=== PATIENT | male | born 1960 | race Caucasian/White ===

== ENCOUNTER 2018-06-23 09:45 | Outpatient (REF) | payer OTHER, SELFPAY ==
[2018-06-24 10:57] LABS: Hemoglobin A1C 5.7 % (4.5-6.2)
[2018-06-24 11:02] LABS: ALT 20 U/L (12-78); AST 20 U/L (15-37); Albumin 4.1 g/dL (3.4-5.0); Alkaline Phosphatase 72 U/L (46-116); Anion Gap 8.1 mmol/L (3-11); BUN 18 mg/dL (7-18); Bilirubin, Total 0.6 mg/dL (0.2-1.0); CO2 29.9 mmol/L (21.0-32.0); CREATININE 0.94 mg/dL (0.70-1.30); Calcium 9.4 mg/dL (8.5-10.1); Chloride 102 mmol/L (98-107); Glucose 104 mg/dL (70-100); Potassium 4.3 mmol/L (3.5-5.1); Sodium 140 mmol/L (136-145); Total Protein 7.3 g/dL (6.4-8.2)
[2018-06-24 18:38] LABS: Cholesterol 197 mg/dL (50-200); HDL Cholesterol 76 mg/dL (40-60); LDL CHOLESTEROL 109 mg/dL (<100); Triglyceride 26 mg/dL (30-150)
== END 2018-06-23 10:05 ==
LOC: NCHCN 09:45
PROVIDERS: PCP Physician Assistant Medical; Visit Provider Physician Assistant Medical
DX: Z00.00 Encounter for general adult medical examination without abnormal findings (principal); Z13.1 Encounter for screening for diabetes mellitus; Z13.220 Encounter for screening for lipoid disorders; Z13.228 Encounter for screening for other metabolic disorders
CPT/HCPCS: 80053; 80061; 83721; 83036

== ENCOUNTER 2019-03-15 15:05 | Outpatient (REF) | payer OTHER, SELFPAY ==
[2019-03-15 22:20] LABS: Anion Gap 9.2 mmol/L (3-11); BUN 15 mg/dL (7-18); CO2 27.8 mmol/L (21.0-32.0); CREATININE 0.99 mg/dL (0.70-1.30); Calcium 9.5 mg/dL (8.5-10.1); Chloride 103 mmol/L (98-107); Glucose 100 mg/dL (70-100); Potassium 4.6 mmol/L (3.5-5.1); Sodium 140 mmol/L (136-145)
== END 2019-03-15 15:25 ==
LOC: NCHCN 15:05
PROVIDERS: PCP Physician Assistant Medical; Visit Provider Physician Assistant Medical
DX: I10 Essential (primary) hypertension (principal)
CPT/HCPCS: 80048

== ENCOUNTER 2020-07-10 16:28 | Outpatient (REF) | payer OTHER, SELFPAY ==
[2020-07-10 15:50] LABS: Anion Gap 7.2 mmol/L (3-11); BUN 17 mg/dL (7-18); CO2 28.8 mmol/L (21.0-32.0); Calcium 9.3 mg/dL (8.5-10.1); Chloride 105 mmol/L (98-107); Glucose 85 mg/dL (74-106); Potassium 4.5 mmol/L (3.5-5.1); Sodium 141 mmol/L (136-145)
[2020-07-10 15:57] LABS: Hemoglobin A1C 5.9 % (<5.7)
== END 2020-07-10 16:29 | disposition home or self-care (01) ==
LOC: NCHCN 16:28
PROVIDERS: PCP Physician Assistant Medical; Visit Provider Physician Assistant Medical
DX: I10 Essential (primary) hypertension (principal); R73.03 Prediabetes
CPT/HCPCS: 80048; 83036

== ENCOUNTER 2021-01-05 08:44 | Outpatient (REF) | payer OTHER, SELFPAY ==
[2021-01-05 15:16] LABS: Hemoglobin A1C 5.9 % (<5.7)
[2021-01-05 15:23] LABS: ALT 26 U/L (16-63); AST 16 U/L (15-37); Albumin 4.2 g/dL (3.4-5.0); Alkaline Phosphatase 75 U/L (46-116); Anion Gap 2.3 mmol/L (3-11); BUN 22 mg/dL (7-18); Bilirubin, Total 0.5 mg/dL (0.2-1.0); CO2 26.7 mmol/L (21.0-32.0); CREATININE 0.8 mg/dL (0.70-1.30); Calcium 9.1 mg/dL (8.5-10.1); Calculated LDL 126 mg/dL (<100); Chloride 103 mmol/L (98-107); Cholesterol 191 mg/dL (<200); Glucose 112 mg/dL (74-106); HDL Cholesterol 57 mg/dL (40-60); Potassium 5.1 mmol/L (3.5-5.1); Sodium 132 mmol/L (136-145); Total Protein 7.1 g/dL (6.4-8.2); Triglyceride 41 mg/dL (<150)
[2021-01-08 11:04] LABS: Hepatitis C Ab w Rflx HCV PCR Negative (Negative)
== END 2021-01-05 08:45 | disposition home or self-care (01) ==
LOC: NCHCN 08:44
PROVIDERS: PCP Physician Assistant Medical; Visit Provider Physician Assistant Medical
DX: Z00.00 Encounter for general adult medical examination without abnormal findings (principal); R73.03 Prediabetes; I10 Essential (primary) hypertension; Z11.59 Encounter for screening for other viral diseases
CPT/HCPCS: 80053; 80061; 86803; 83036

== ENCOUNTER 2021-05-10 12:00 | Outpatient (CLI) | payer OTHER, SELFPAY ==
--- NOTE | 2021-05-10 15:00 | DI.RAD_ITS ---
Exam(s) XR SHOULDER RT COMPLETE 2+V EXAM: XR SHOULDER RT COMPLETE 2+V CLINICAL HISTORY: RT SHOULDER PAIN, M25.511, SLIP AND FALL ON ICE THIS MORNING, PAIN PROXIMAL. TECHNIQUE: 2D digital imaging was performed. COMPARISON: No exams were available for comparison FINDINGS: Four views of the right shoulder reveal no evidence fracture nor dislocation nor glenohumeral joint s pace narrowing. No calcifications in the subacromial space. There is, however, slight diminution of the subacromial space. Minimal degenerative changes in the AC joint. No calcifications in the suba cromial space. No osseous lesions. Bone density normal. IMPRESSION: Subtle decrease in subacromial space height. This may be associated with rotator cuff pathology. DATA REPOSITORY: RADIATION DOSE DELIVERED:
== END 2021-05-10 12:20 ==
PROVIDERS: PCP Physician Assistant Medical; Visit Provider Physician Assistant Medical
DX: M25.511 Pain in right shoulder (principal)
CPT/HCPCS: 73030

== ENCOUNTER 2021-06-06 01:06 | Outpatient (CLI) | payer OTHER, SELFPAY ==
--- NOTE | 2021-06-06 06:30 | DI.MRI_ITS ---
Exam(s) MR UPPER JOINT RT WO EXAM: MR UPPER JOINT RT WO CLINICAL HISTORY: R SHOULDER PAIN,traumatic tear rt rotator cuff, s46.011a TECHNIQUE: Multiplanar multisequence MRI of the shoulder was performed. COMPARISON: CR XR SHOULDER RT COMPLETE 2+V from 05/10/2021 FINDINGS: MARROW:There is no evidence of fracture, Hill-Sachs deformity, nor ominous osseous lesions. Mild bone edema seen in the greater tuberosity region of the humeral head. There are findings consistent with probable prior rotator cuff surgery here. ROTATOR CUFF MECHANISM: AC JOINT/ACROMIUM: There is mild widening of the AC joint (5-6 millimeters). This may be postsurgica l.. Fluid intensity is noted within the AC joint space. There is no evidence of os acromiale. Supraspinatus: There is a prominent full-thickness tear with retraction of the musculotendinous junct ion to the medial 3rd of the humeral head. This results in a large bare area, and there is fluid con tinuity between the glenohumeral joint and diminished subacromial bursa space. Mild muscle atrophy n oted. Infraspinatus: Partial tearing. However, a large part of the tendon still inserts upon the posterior aspect of the greater tuberosity, appearing intact. Teres Minor: Intact. No evidence of tear nor muscle atrophy. Subscapularis/anterior cuff: Intact. No abnormal signal at the level of the multipennate insertional fibers. No significant tear nor atrophy. BICEPS TENDON: Exhibits normal position with in the inter tubercular groove but exhibits mild attenua tion at this level. Remains attached to the anterosuperior labrum, however, there is significant tearing of the labrum at and anterior to this level. LABRUM: Although there is no evidence of tear in the superior labrum posterior to the biceps insertio n, there is significant tearing of the anterior labrum. The posterior labrum is intact. Inferior la vijaya appears intact. Inferior glenohumeral ligament is intact. LABROLIGAMENTOUS/CAPSULAR COMPLEX: There is no evidence of avulsion of the anterior-inferior labrum, capsule, inferior glenohumeral liga ment complex nor disruption of the scapular periosteum to suggest the presence of a Bankart lesion. GLENOHUMERAL JOINT: There is a moderate size joint effusion which extends down the biceps tendon black th. Also in continuity with the subacromial space (which is diminished), as evident on recent plain films. No degenerative subarticular cysts. No osteophytes. No evidence of capsular tear. The infe rior glenohumeral ligament is intact. QUADRILATERAL SPACE: No evidence of mass in the region of the axillary nerve and dorsal circumflex hu meral vessels. Visualized triceps muscle at this level appears unremarkable. IMPRESSION: 1. There is evidence of prior rotator cuff surgery. 2. There is presently a large tear of the rotator cuff supraspinatus tendon with retraction to the me dial 3rd of the humeral head, this leaving a large bare area with continuity of fluid between the gle nohumeral joint and diminished subacromial space. Infraspinatus appears attached to the posterior as pect of the greater tuberosity although the more anterior attachment fibers are not visualized. Ante rior cuff-subscapularis appears intact. 3. There is tearing of the anterior superior labrum just below the biceps attachment. There is fluid interposition at this level between the labrum and the osseous glenoid. The inferior half of the an terior labrum appears intact as does the inferior labrum and posterior labrum and there is no evidenc e of SLAP-type superior labral tear. 4. Biceps tendon appears attenuated within the intertubercular groove but otherwise intact. DATA REPOSITORY:
== END 2021-06-06 01:26 ==
PROVIDERS: PCP Physician Assistant Medical; Visit Provider Physician Assistant Surgical
DX: S46.011A Strain of muscle(s) and tendon(s) of the rotator cuff of right shoulder, initial encounter (principal); S43.491A Other sprain of right shoulder joint, initial encounter
CPT/HCPCS: 73221

== ENCOUNTER 2021-06-26 01:49 | Outpatient (CLI) | payer OTHER, SELFPAY ==
[2021-06-26 13:01] LABS: Source Nasal/Nares
[2021-06-26 16:28] LABS: COVID-19 PCR Negative (Negative)
== END 2021-06-26 01:50 | disposition home or self-care (01) ==
PROVIDERS: PCP Physician Assistant Medical; Visit Provider Student in an Organized Health Care Education/Training Program
DX: Z20.822 Contact with and (suspected) exposure to COVID-19 (principal); Z01.818 Encounter for other preprocedural examination
CPT/HCPCS: 87635

== ENCOUNTER 2021-06-28 07:16 | Day surgery (SDC) | payer OTHER, SELFPAY ==
[2021-06-28] VITALS (8 sets, daily range): BP systolic 98–131; BP diastolic 44–89; PULSE 53–63; RESP 14–21; TEMP 36.2–37.1; O2SAT 95–98; BMI 29.0
--- NOTE | 2021-06-28 06:34 | W.ANESPRE ---
General Info Date of Service Date Performed: 06/28/21 Height: 5 ft 11 in Weight: 94.347 kg Body Mass Index (BMI): 29.0 Surgical Procedure: Operation Date: 06/28/21 09:55 Proposed Procedures Side Surgeon p Shoulder Rotator Cuff Massive Repair Arthroscopic w/Extensive Debridement, possible Biceps Tenodesis, Subacromial Decompression,possible Allograft Capsular Reconstruction Right Shawn Milian MD Meds Allergies and Home Medications Allergies Allergy/AdvReac Type Severity Reaction Status Date / Time No Known Drug Allergies Allergy Unverified 06/28/21 07:30 Home Medication Medication Instructions Recorded lisinopril 10 mg tablet 10 mg PO HS 05/30/21 aspirin 81 mg PO DAILY 14 Days #14 tab 06/28/21 naproxen 250 - 500 mg PO BID PRN #40 tab 06/28/21 oxycodone 5 - 10 mg PO Q4H PRN #18 tab MDD 06/28/21 30 mg Current Visit Medications: Current Medications Generic Name Dose Route Start Last Admin Trade Name Freq PRN Reason Stop Dose Admin Ringer's Solution 1,000 mls @ 100 mls/hr 06/28/21 06:00 IV 07/27/21 23:59 INFUSION HAYLEE Cefazolin Sodium/Dextrose 2 gm in 50 mls @ 100 mls/hr 06/28/21 06:00 Ancef Duplex IVPB 06/28/21 16:00 PREOP HAYLEE IV Miscellaneous Supplies 1 each 06/28/21 06:00 Iv Access IV 07/27/21 23:59 DIRECTED HAYLEE Sodium Chloride 0 ml 06/28/21 06:00 Normal Saline Flush 10 Ml Syr IV 07/27/21 23:59 PRN PRN Sodium Chloride 0 ml 06/28/21 06:00 Normal Saline 10 Ml Vial IJ 07/27/21 23:59 DIRECTED PRN Sterile Water 0 ml 06/28/21 06:00 Water,Injection,Sterile 10 Ml Vial IJ 07/27/21 23:59 DIRECTED PRN PFSH Active Problems Active Problems: Problem Status Onset Code Traumatic tear of right rotator cuff 05/21/21 S46.011A Rupture of right proximal biceps tendon S46.211A Medical History Medical History (Updated 06/28/21 @ 07:30 by Amy Echols) HTN (hypertension) Hx of fracture of leg left Surgical History Surgical History Hx of colonoscopy Tobacco Smoking/Tobacco Use Status: Never Alcohol Alcohol Intake: current Alcohol intake frequency: 0-2 drinks per day Alcohol type: wine Substance Use Substance use: Never Substance use type: does not use Vital Signs and Lab Results Vital Signs Most Recent Vital Signs in EMR: Temp Pulse Resp BP Pulse Ox 36.7 C 63 16 130/89 97 06/28/21 07:47 06/28/21 07:47 06/28/21 07:47 06/28/21 07:47 06/28/21 07:47 Lab Results Blood Type / Crossmatch: No Data to Display Complete Blood Count: No Data to Display Complete Metabolic Panel: No Data to Display Liver Function Panel: No Data to Display Coagulation Panel: No Data to Display Cardiac Panel: No Data to Display Arterial Blood Gas: No Data to Display Venous Blood Gas: No Data to Display Pancreas Panel: No Data to Display Thyroid Panel: No Data to Display Infectious Disease: Coronavirus (COVID-19)(PCR) Negative (Negative) 06/26/21 08:30 06/26/21 Coronavirus 2019 Source Nasal/Nares 06/26/21 08:30 06/26/21 Blood Cultures: No Data to Display Toxicology Panel: No Data to Display Anesthesia Assessment and Plan Anesthesia History Personal History: No History of Anesthesia Complications Family History: No Family History of Anesthesia Complications Exercise Tolerance Exercise Tolerance: Metabolic Equivalents<4 Cardiac & Pulmonary Exam Cardiac Exam: Normal S1/S2 Heart Sounds Pulmonary Exam: Clear Bilateral Breath Sounds Implantable Cardiac Device Does patient have a Pacemaker or an ICD?: No Airway Exam Known Difficult Airway: No Mallampati Class: 4 Mouth Opening: Narrow (< 3cm) Thyromental Distance: Less than 3 cm Neck Range of Motion: Full ROM Neck Circumference: Normal Teeth Condition: Normal Dentition ASA Classification ASA Score: ASA 2 Emergency Case?: No NPO Status NPO Status: NPO Clears >2 hours, Solids >8 hours Anesthesia Plan Resuscitation Status: Full Code Anesthesia Technique: General Anesthesia Airway Planned: Endotracheal Tube Pain Management: Surgeon and patient request nerve block Monitors Used: Standard Monitors Preoperative Comments:: 61 yo male for right RTC tear. Sig PMHx: HTN (lisinopril), never smoker, occ EtOH. Plan: JEANNIE ROME.
[2021-06-28] MEDS: Lactated Ringers 1,000 ML 100 ML IV ×2 (08:05→13:00)
--- NOTE | 2021-06-28 08:41 | W.ANESNERVE ---
Nerve Block Single Injection Procedure Date and Time Date Performed: 06/28/21 Procedure Start: 08:30 Location Where Procedure Performed Procedure Location: Day Surgery Unit Reason Performed: Postoperative Analgesia Requesting Provider: Shawn Milian Timeout Performed Timeout Performed: Yes Monitoring Used ECG, Blood Pressure and SpO2 Sterility Sterility: Hand Hygiene, Surgical Cap, Surgical Mask and Chlorhexidine Sedation Given During Procedure Sedation Given (Indicate Dose Given): No Sedation given Patient Mental Status Patient Mental Status: Awake Nerve Block 1st Nerve Block: Laterality: Right Block Type: Interscalene Needle / Catheter Used: 100mm SonoPlex II Local Anesthetic Bolus (Indicate Dose Given): Lidocaine used for local infiltration of skin, Injected in 3-5ml increments after negative blood aspiration, Bupivacaine 0.5% Dose:: 14 mL and Exparel Dose:: 10 mL Additives (Indicate Dose Given): None Ultrasound: Sterile probe cover and gel used Ultrasound Image Saved?: Yes Nerve Stimulator: Not Used Paresthesia: None Procedure Tolerated: No Complications Procedure Outcome: Successful Performed By: Terry Jane
--- NOTE | 2021-06-28 12:00 | ROE_ITS ---
Date of service: 06/28/21 Time of Service: 11:00 Operative Note Operative Note DATE OF PROCEDURE: 06/28/21 PRE-OP DIAGNOSIS: Right: 1. Massive rotator cuff tear 2. LHB tendinopathy POST-OP DIAGNOSIS: same Right: 1. Massive rotator cuff tear 2. LHB tendinopathy 3. SLAP tear PROCEDURE: Right: 1. Rotator cuff repair, CPT# 70989. This involved repair of the infraspinatus and partial supraspinatus using anchors and sutures to reattach the rotator cuff over the top of the reconstruction graft to the greater tuberosity. 2. Arthroscopic biceps tenodesis, CPT# 21148. This involved arthroscopically suturing and reattaching the long head of the biceps tendon to the proximal humerus at anterior medial supraspinatus footprint superior to the bicipital groove with a screw at the correct tension. 3. Arthroscopic superior capsular reconstruction, CPT #07829: This involved dermal allograft reconstruction of deficient superior capsule to maintain glenohumeral stability and prevent superior humeral migration. 4. Extensive debridement, CPT# 35241. This involved using arthroscopic hand instruments, power instruments, and radiofrequency instruments to release the long head of the biceps tendon and debride areas of labral tearing, synovitis, and chondromalacia greater tuberosity within the glenohumeral joint anteriorly, superiorly and posteriorly. Significant scarring adhesions were released anteriorly, about the subcoracoid recess, rotator interval including [facility] L, and between the superior rotator cuff and labrum. 5. Subacromial decompression, CPT# 10262. This involved using arthroscopic power instruments and a radiofrequency wand to complete a bursectomy The sales assistant entertainment and media was medically required in order to help assist in techniques above, which require positioning the arm, holding the arthroscope, and manipulating multiple instruments and sutures at the same time. This cannot be done without the help of an experienced sales assistant entertainment and media. SURGEON: Shawn Milian CONSTITUTIONAL LAW PROFESSOR: Sima Allen ANESTHESIA TYPE: General LMA/ETT and Primary Nerve Block Refer to Anesthesia Record ESTIMATED BLOOD LOSS: 15 PATHOLOGY: none sent COMPLICATIONS: None Patient was transported to: PACU Patient's condition: stable Implants: Arthrex: 4.75mm SwiveLocks x 5 Indications: The patient was diagnosed with the above conditions and appropriately indicated for surgical intervention. Please see complete medical record for details. Findings: Exam under anesthesia: Still limited range of motion slightly forward elevation and external rotation lacking about 15 degrees external rotation and 25 degrees forward elevation Glenohumeral joint: Significant synovitis scarring adhesion anteriorly, rotator interval, subcoracoid recess about intact subscapularis. Diminutive biceps tendon intra-articularly although no obvious tearing there was a SLAP tear also present about the biceps anchor. Significantly scarred retracted supraspinatus about to the level of the superior labrum. Delaminated scarred infraspinatus anterior component retracted to about the glenoid and posterior compartment moderately tract about correction to the glenoid. Subacromial space: Fibrinous material about devoid greater tuberosity of largely any rotator cuff attachment. No significant subacromial bone spur. Significant bursitis and adhesions globally adhesions to the delaminated poor tissue quality rotator cuff. Procedure Description: In the operating room, general anesthesia was induced. Bilateral shoulders were examined. The patient was positioned in the beachchair position. All bony prominences were well-padded. Preoperative antibiotics were administered. The shoulder was prepped and draped in the usual sterile fashion. The correct patient, procedure, and side of the procedure were all verified prior to incision. Starting through the posterior portal a standard complete diagnostic arthroscopy was performed of the glenohumeral joint including inspection of the long head of the biceps, anterior and superior labrum, subscapularis tendon, supraspinatus and infraspinatus tendons, and axillary recess. The glenoid and humeral head cartilage as well as the posterior labrum were inspected from an anterior viewing portal. Significant findings and interventions noted above. Cannulas were inserted at the superior anterior, superior posterior, and lateral 50 yard line portals. The biceps tendon was localized and secured using loop and tack method with a suture tape passed around and then through the tendon. The arthroscopic scissors was used to tenotomized the biceps from the superior labrum SLAP tear region in the radiofrequency ablator used to mushroom and appropriately contour the stump. The biceps tendon was retracted at the superior anterolateral portal and to about the level of the top of the bicipital groove. Significant attention and time was spent debriding extensively anteriorly superiorly and posteriorly adhesions and scarring between the rotator cuff and bone and bursa above as well as with the labrum and capsule below. This included anterior subcoracoid about the subscapularis and rotator interval releases as well as mobilizing the significantly scarred retracted supraspinatus and infraspinatus delaminated tearing. The rotator cuff tissue was debrided to a stable margin. Various liberator's and elevators were attempted to mobilize tissue for repair. There was no way to achieve supraspinatus tissue reduction to the greater tuberosity footprint. Significant tension was required to reduce partially the more viable posterior component of the infraspinatus across the far posterior greater tuberosity. Decision was made to proceed with allograft superior capsular reconstruction given the superior instability present and likely progressive rotator cuff arthropathy. The bursectomy was completed anterior laterally and posteriorly. The superior labrum was was debrided. The superior anterior and posterior margin of the glenoid bone was prepared to optimize healing. Percutaneously the 3 glenoid corkscrew anchors were localized, drilled and then placed. The 2 medial row SwiveLock anchors were then punched in place. The anterior anchor contained the biceps repair suture completing the tenodesis. The posterior medial row anchor contained a knotless repair mechanism for planned infraspinatus repair over the posterior margin of the cuff. The dimensions for the reconstruction were measured with the arm in the appropriate abduction and neutral rotation position. The graft was prepared on the back table leaving about a 5 mm margin medially anteriorly posteriorly without 10 mm laterally for greater tuberosity coverage. The graft was brought over to the shoulder. The lateral Susan switched for a 12 x 3 mm passport. The FiberTape's and knotless repair sutures brought out laterally taking care to avoid any twisting or nodding. These were passed from underneath and through the cuff at the appropriate prepunch medial row and lateral position. Sequentially the repair and then knotless shuttling suture was then retrieved from the anterior then middle and then posterior glenoid knotless corkscrew anchors. The scorpion was used to pass horizontal mattress sutures at the appropriate medial glenoid margin of the allograft. Sutures were shuttled through their respective anchors and all slack taken out of the system. The back grasper followed by Gin clamp were used to deliver the allograft carefully into the shoulder through the lateral portal. Sequential tightening was performed on the glenoid anchors with excellent apposition and coverage of the glenoid. The posterior anchor knotless mechanism needed a little help with the tape grasper to fully secure this corner of the graft down to bone. Preliminary tightening was completed. The FiberTape's were then compressed over the graft securing coverage over the greater tuberosity with excellent preliminary appearance. The tapes were retrieved out the superior portals. A single tape from anterior and posteriorly was then brought out laterally and secured anteriorly laterally to a lateral row SwiveLock anchor. This was repea ashley to a posterior lateral anchor completing the speed bridge knotless compression of the graft over the greater tuberosity. The knotless repair suture from the posterior medial row anchor was then passed through the infraspinatus at the appropriate level achieving excellent coverage of the infraspinatus over the inferior and posterior portion of the graft. Final tightening was done on the glenoid corkscrew anchors and sutures cut. Repair was inspected and felt to have excellent coverage for 6 frustration and good infraspinatus repair to the graft. The supraspinatus and more anterior aspect and Stratus could be mobilized partially over the graft. Decision was made to place 2 additional suture tapes in cinch mode and then draped this tissue over the medial posterior aspects of the graft and secured to a far lateral central SwiveLock anchor. Everything and was inspected and demonstrated good fixation and good cuff repair. There was good rotator cuff coverage posteriorly and allograft reconstruction coverage superiorly to about the rotator interval biceps groove. The shoulder was drained of arthroscopic fluid. All portal sites were copiously irrigated. These incisions were closed using 3-0 Monocryl in a buried fashion and then covered with Mastisol, Steri-Strips, Xeroform, dry gauze, and ABDs. The dressings were covered and secured with Medipore tape. The operative ext remity was placed into a sling for immobilization. The patient awoke from anesthesia without complication and was transferred to the recovery room in a stable condition.
--- NOTE | 2021-06-28 13:37 | PDOC.DSDIS_ITS ---
Discharge Plan Disposition Patient Disposition: HOME Condition: Stable Discharge Details Reason For Visit: Right shoulder surgery Attending Provider: Shawn Milian Primary Care Provider: Josep Ridley Home Meds and New Rx's Prescriptions: New naproxen 250 mg tablet 250 - 500 mg PO BID PRNQty: 40 RF: 0 aspirin 81 mg tablet,delayed release (DR/EC) 81 mg PO DAILY 14 Days Qty: 14 RF: 0 oxycodone 5 mg tablet 5 - 10 mg PO Q4H MDD 30 mg PRN (Reason: moderate to severe pain) Qty: 18 RF: 0 Continued lisinopril 10 mg tablet 20 mg PO HS RF: 0 Discharge Instructions Additional Instructions: Surgery: Right shoulder arthroscopy with allograft superior capsular rec onstruction, rotator cuff repair, biceps tenodesis, extensive debridement, and subacromial decompression. Activity: For 6 weeks, you should keep your arm at your side in a neutral position at all times except for physical therapy. Do not try to lift or raise your arm using your own muscles. You should use the sling whenever you are out of the house. You may have to adjust the abduction pillow or remove it for comfort. At home it is best to remove the sling and rest the arm on a pillow at your side or support the operative side with your other hand. You may allow the arm to dangle at your side. A physical therapy prescription will be sent electronically to begin in about 3 weeks. CONSERVATIVE protocol. Gentle range of motion. Active assisted after 6 weeks. Active after 8 weeks. No strengthening for 3 months. Prescriptions: Aspirin 81 mg take 1 daily to prevent a blood clot for 2 weeks Naproxen 250 mg take 1-2 every 12 hours with a meal as needed for moderate pain Oxycodone 5 mg take 1-2 every 4-6 hours as needed for severe pain You may use radl-zki-zybygcz Tylenol (acetaminophen) as needed for mild pain. These pain medications may be taken all at once or in different combinations as needed. Also, recommend Colace (docusate) as a stool softener as surgery and pain medicine cause constipation. Dressings: Remove shoulder bandage after 3 days. Leave the sticky Steri-Strips in place until they fall off or remove them after you shower. Cover the incisions with Band-Aids or leave them open to air. You may shower after 5 days. Follow-up: 10-[address] Milian You may take off the leg compression stockings this evening at home. You may also leave them on a few days longer if you have a history of leg swelling or edema. Let us know right away if you develop any redness, drainage, fevers, chest pain, or trouble breathing. Do not drink alcohol or drive for at least 24 hours after anesthesia. Please call the office during business hours with any questions or concerns. Referrals: Shawn Milian MD [ [facility] STAFF PHYSICIAN] - Discharge Orders Discharge Orders: Discharge Order (Routine); Ordered 06/28/21 Ordered By: Shawn Milian DS: Diagnosis Discharge Diagnosis (1) Traumatic tear of right rotator cuff: Status: Acute (2) Rupture of right proximal biceps tendon: Status: Acute
[2021-06-28] MEDS: EPINEPHrine 30 MG/30 ML VIAL (13:45)
--- NOTE | 2021-06-28 17:07 | W.PM.DSUDISC ---
Discharge Plan Disposition Patient Disposition: HOME Condition: Stable Discharge Details Reason For Visit: Right shoulder surgery Attending Provider: Shawn Milian Primary Care Provider: Josep Ridley Home Meds and New Rx's Prescriptions: New naproxen 250 mg tablet 250 - 500 mg PO BID PRNQty: 40 RF: 0 aspirin 81 mg tablet,delayed release (DR/EC) 81 mg PO DAILY 14 Days Qty: 14 RF: 0 oxycodone 5 mg tablet 5 - 10 mg PO Q4H MDD 30 mg PRN (Reason: moderate to severe pain) Qty: 18 RF: 0 Continued lisinopril 10 mg tablet 20 mg PO HS RF: 0 Discharge Instructions Additional Instructions: Surgery: Right shoulder arthroscopy with allograft superior capsular reconstruction, rotator cuff repair, biceps tenodesis, extensive debridement, and subacromial decompression. Activity: For 6 weeks, you should keep your arm at your side in a neutral position at all times except for physical therapy. Do not try to lift or raise your arm using your own muscles. You should use the sling whenever you are out of the house. You may have to adjust the abduction pillow or remove it for comfort. At home it is best to remove the sling and rest the arm on a pillow at your side or support the operative side with your other hand. You may allow the arm to dangle at your side. A physical therapy prescription will be sent electronically to begin in about 3 weeks. CONSERVATIVE protocol. Gentle range of motion. Active assisted after 6 weeks. Active after 8 weeks. No strengthening for 3 months. Prescriptions: Aspirin 81 mg take 1 daily to prevent a blood clot for 2 weeks Naproxen 250 mg take 1-2 every 12 hours with a meal as needed for moderate pain Oxycodone 5 mg take 1-2 every 4-6 hours as needed for severe pain You may use [id number] Tylenol (acetaminophen) as needed for mild pain. These pain medications may be taken all at once or in different combinations as needed. Also, recommend Colace (docusate) as a stool softener as surgery and pain medicine cause constipation. Dressings: Remove shoulder bandage after 3 days. Leave the sticky Steri-Strips in place until they fall off or remove them after you shower. Cover the incisions with Band-Aids or leave them open to air. You may shower after 5 days. Follow-up: 10-[address] Milian You may take off the leg compression stockings this evening at home. You may also leave them on a few days longer if you have a history of leg swelling or edema. Let us know right away if you develop any redness, drainage, fevers, chest pain, or trouble breathing. Do not drink alcohol or drive for at least 24 hours after anesthesia. Please call the office during business hours with any questions or concerns. Stand Alone Forms: Anesthesia Discharge Inst., Lylys.Nerve Block Instructions Referrals: Shawn Milian MD [ [facility] STAFF PHYSICIAN] - 07/11/21 1:45 pm Discharge Orders Discharge Orders: Discharge Order (Routine); Ordered 06/28/21 Ordered By: Shawn Milian Discharge Data Discharge Date/Time-TO BE ENTERED AT DEPARTURE: 06/28/21 15:44 DS: Diagnosis Discharge Diagnosis (1) Traumatic tear of right rotator cuff: Status: Acute (2) Rupture of right proximal biceps tendon: Status: Acute
--- NOTE | 2021-06-29 12:58 | W.ANESPOSTOP ---
Postoperative Evaluation Date, Time and Location Date Performed: 06/29/21 Time Performed: 12:58 Patient Location: Day Surgery Unit Vital Signs Most Recent Imported Vital Signs: Most Recent Vital Signs Temp Pulse Resp BP Pulse Ox 36.2 C L 59 L 16 110/69 95 06/28/21 14:55 06/28/21 14:55 06/28/21 14:55 06/28/21 14:55 06/28/21 14:55 Pain Score Most Recent Pain Score: Most Recent Pain Score Pain Level 0 06/28/21 14:55 Assessment Mental Status: Awake (Alert & Oriented to Patient Baseline) Airway and Respiratory Function: Patent airway with normal (patient baseline) respiratory exam Cardiovascular Function: Hemodynamically Stable Hydration Status: Adequately Hydrated Nausea & Vomiting: No Nausea or Vomiting Pain: Pt. Denies Any Pain Peripheral Nerve Block: Regional nerve block not resolved at time of post operative discharge Postoperative Comments:: Patient seen yesterday by Shereen Jane and myself. Postop erroneously not entered yesterday.
== END 2021-06-28 15:44 | disposition home or self-care (01) ==
PROVIDERS: PCP Physician Assistant Medical; Visit Provider Student in an Organized Health Care Education/Training Program
PROC: (CPT 29827; principal; 2021-06-28 09:45)
DX: S46.011A Strain of muscle(s) and tendon(s) of the rotator cuff of right shoulder, initial encounter (principal); S46.211A Strain of muscle, fascia and tendon of other parts of biceps, right arm, initial encounter; X58.XXXA Exposure to other specified factors, initial encounter; S43.431A Superior glenoid labrum lesion of right shoulder, initial encounter
CPT/HCPCS: 29806; 29827; 29828; 29826; 29823; 76942; J1100; J2001; J2250; J2370; J2405; J2704

== ENCOUNTER 2021-11-13 15:59 | Outpatient (REF) | payer OTHER, SELFPAY ==
[2021-11-15 11:41] LABS: COVID-19 RT-PCR UVMMC Result Positive (Negative)
== END 2021-11-13 16:00 | disposition home or self-care (01) ==
LOC: NCHCN 15:59
PROVIDERS: PCP Physician Assistant Medical; Visit Provider Physician Assistant Medical
DX: Z20.822 Contact with and (suspected) exposure to COVID-19 (principal)
CPT/HCPCS: U0003

== ENCOUNTER 2022-04-29 16:14 | Outpatient (REF) | payer OTHER, SELFPAY ==
[2022-04-29 17:27] LABS: ALT 28 U/L (16-63); AST 23 U/L (15-37); Albumin 3.8 g/dL (3.4-5.0); Alkaline Phosphatase 71 U/L (46-116); BUN 20 mg/dL (7-18); Bilirubin, Total 0.3 mg/dL (0.2-1.0); CREATININE 1.1 mg/dL (0.70-1.30); Calcium 8.6 mg/dL (8.5-10.1); Calculated LDL 111 mg/dL (<100); Chloride 103 mmol/L (98-107); Cholesterol 180 mg/dL (<200); Estimated GFR 74.96 (mL/min/1.73m2); Glucose 106 mg/dL (74-106); HDL Cholesterol 57 mg/dL (40-60); Hemoglobin A1C 5.7 % (<5.7); Potassium 4.2 mmol/L (3.5-5.1); Sodium 140 mmol/L (136-145); Total Protein 6.9 g/dL (6.4-8.2); Triglyceride 61 mg/dL (<150)
== END 2022-04-29 16:15 | disposition home or self-care (01) ==
LOC: NCHCN 16:14
PROVIDERS: PCP Physician Assistant Medical; Visit Provider Physician Assistant Medical
DX: I10 Essential (primary) hypertension (principal); R73.03 Prediabetes
CPT/HCPCS: 80053; 80061; 83036

== ENCOUNTER 2022-07-30 13:07 | Outpatient (REF) | payer OTHER, SELFPAY ==
[2022-07-30 17:13] LABS: ALT 29 U/L (16-63); AST 18 U/L (15-37); Albumin 4.1 g/dL (3.4-5.0); Alkaline Phosphatase 79 U/L (46-116); Anion Gap 5.8 mmol/L (3-11); BUN 21 mg/dL (7-18); Bilirubin, Total 0.4 mg/dL (0.2-1.0); CO2 29.2 mmol/L (21.0-32.0); CREATININE 1.1 mg/dL (0.70-1.30); Calcium 9.3 mg/dL (8.5-10.1); Calculated LDL 98 mg/dL (<100); Chloride 103 mmol/L (98-107); Cholesterol 168 mg/dL (<200); Estimated GFR 74.96 (mL/min/1.73m2); Glucose 113 mg/dL (74-106); HDL Cholesterol 60 mg/dL (40-60); Potassium 4.8 mmol/L (3.5-5.1); Sodium 138 mmol/L (136-145); Total Protein 7.1 g/dL (6.4-8.2); Triglyceride 53 mg/dL (<150)
== END 2022-07-30 13:08 | disposition home or self-care (01) ==
LOC: NCHCN 13:07
PROVIDERS: PCP Physician Assistant Medical; Visit Provider Physician Assistant Medical
DX: E78.5 Hyperlipidemia, unspecified (principal)
CPT/HCPCS: 80053; 80061

== ENCOUNTER 2023-01-31 08:52 | Outpatient (REF) | payer OTHER, SELFPAY ==
[2023-01-31 17:37] LABS: Hemoglobin A1C 5.8 % (<5.7)
[2023-01-31 22:57] LABS: PSA, Screening 1.6 ng/mL (<=4.5)
== END 2023-01-31 08:53 | disposition home or self-care (01) ==
LOC: NCHCN 08:52
PROVIDERS: PCP Physician Assistant Medical; Visit Provider Physician Assistant Medical
DX: Z00.00 Encounter for general adult medical examination without abnormal findings (principal); R73.03 Prediabetes; Z12.5 Encounter for screening for malignant neoplasm of prostate
CPT/HCPCS: 84153; 83036

== ENCOUNTER 2023-12-14 14:08 | Inpatient (IN) | payer MEDICARE, SELFPAY ==
[2023-12-14] VITALS (44 sets, daily range): BP systolic 67–113; BP diastolic 35–69; PULSE 55–96; RESP 7–26; TEMP 36.2–36.3; O2SAT 98
[2023-12-14] MEDS: Lactated Ringers 1,000 ML 1000 ML IV ×2 (15:25→16:18)
[2023-12-14 15:29] LABS: Abs Immature Grans 0.02 10^3/uL (0.0-0.06); Absolute Basophil Count 0.06 10^3/uL (0.0-0.2); Absolute Eosinophil Count 0.25 10^3/uL (0.0-0.7); Absolute Lymphocyte Count 1.42 10^3/uL (1.2-3.4); Absolute Monocyte Count 0.94 10^3/uL (0.1-0.8); Absolute Neutrophil Count 6.15 10^3/uL (1.2-6.7); Basophils % 0.7 %; Eosinophils % 2.8 %; HCT 40.7 % (40.0-50.0); HGB 14.7 g/dL (13.5-17.5); Immature Grans % 0.2 %; Lymphocytes % 16.1 %; MCH 29.9 pg (27.0-33.0); MCHC 36.1 % (32.0-36.0); MCV 83 fL (80-95); MPV 9.8 fL (8.0-11.0); Monocytes % 10.6 %; Neutrophils % 69.6 %; Platelet Count 285 10^3/uL (130-400); RBC 4.92 10^6/uL (4.36-5.78); RDW 12.4 % (11.8-14.1); RDW-SD 37.7 fL; WBC 8.84 10^3/uL (4.4-10.8)
[2023-12-14 15:47] LABS: ALT 26 U/L (16-63); AST 13 U/L (15-37); Albumin 4.1 g/dL (3.4-5.0); Alkaline Phosphatase 95 U/L (46-116); Anion Gap 17.7 mmol/L (3-11); CO2 17.3 mmol/L (21.0-32.0); Calcium 8.7 mg/dL (8.5-10.1); Chloride 94 mmol/L (98-107); Creatine Kinase 309 U/L (39-308); Estimated GFR 9.17 (mL/min/1.73m2); Glucose 122 mg/dL (74-106); Magnesium 2.6 mg/dL (1.8-2.4); Potassium 5.5 mmol/L (3.5-5.1); Sodium 129 mmol/L (136-145); Total Protein 7.5 g/dL (6.4-8.2)
[2023-12-14 15:54] LABS: BUN 153 mg/dL (7-18)
[2023-12-14 15:55] LABS: CREATININE 6.3 mg/dL (0.70-1.30)
--- NOTE | 2023-12-14 16:00 | RT.EKG_ITS ---
APPROVED REPORT Exam: Resting ECG Reason for Exam: HYPER K Patient Location: E HR:62 bpm ECG Measurements Heart Rate 62 AXIS MT 154 P 37 QRSd 88 QRS 37 QT 362 T 38 QTc 367 Conclusion Sinus rhythm. 62 normal axis no stemi
--- NOTE | 2023-12-14 16:30 | HPE_ITS ---
Date of service: 12/14/23 Time of Service: 16:30 Assessment and Plan Assessment and plan (1) Hypotension: Status: Acute Assessment and plan: Most likely d/t severe dehydration IV bolus of LR 1000 ml X2 with positive reponse w SBP 91-98 Additional LR 500 ml bolus to meet 30 ml/kg BMP reordered at 17:30 then Q4 hours Repeat Cr 5.1 from 5.5, BUN 140 from 153, K 5.3, Na 131 from 129 SBP 113 in ICU Crystalloid at 150 cc/hour- no previous history of heart failure, was on NS initially will change to LR Consider transferring to ICU level of care if hypotension persists despite adequate fluid resuscitation indicating refractory hypovolemic shock (2) Stage 3 acute kidney injury: Status: Acute Assessment and plan: Cr 6.3 and BUN 153 ratio >20 pointing to prerenal SHIRLEY with gravity> 1.025 Urine sodium pending with value > 40 indicating intra or post renal component Power for strict I&O And as above (3) Acute renal injury due to hypovolemia: Status: Acute Assessment and plan: As above (4) Kidney failure, acute: Status: Acute Assessment and plan: GFR 9 as above and renal US in AM (5) Hyperkalemia: Status: Acute Assessment and plan: Potassium at 5.5, EKG negative for ectopies, repeat at 5.3 Telemetry Consider Lokelma if repeated BMP shows above normal potassium As above (6) Hyponatremia: Status: Acute Assessment and plan: Continue IV fluid resuscitation, and monitor for sodium repletion < 4-6 mEq over a few hour and < 10 mEq/L over 24 hours (7) On deep vein thrombosis (DVT) prophylaxis: Status: Acute Assessment and plan: TEDs Discussed with Dr. Holliday History of Present Illness History of Present Illness Chief Complaint: lack of energy, nausea Narrative: This 63 years old male patient with a past medical history of hypertension on lisinopril and hydrochlorothiazide presented to the emergency room at [facility] via private vehicle for evaluation of decreased energy level, nausea stating that he felt queasy. The patient drove himself. Spouse was at the bedside mentioning symptoms starting as early as a month ago with additional confusion lately. 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 The patient denied change in vision, dizziness, chest pain, cough, vomiting, diarrhea or dysuria. Spouse reporting that voiding is usually prolonged. The workup in the ED was significant for BUN 153, creatinine 6.3, sodium 129, potassium 5.5, chloride 94, anion gap 17.7. CK of 309 was reassuring. The hospitalist service was contacted and the patient admitted as a medical surgical patient with telemetry. EKG results were not available at this time but upon review no ectopy pointing to cardiac increased except for excess acceptability was noted; EKG appears to be negative for ST elevation in 2 contiguous leads. Upon review of the flowsheet, it was noticed that blood pressures have been between 67/37 to 82/42 with lactated Ringer's boluses in progress. Patient seen in ED room 4. The patient was able to sustain a conversation with spouse assistance for details. The patient denied using NSAIDs, only took E[place]- [place] at times. The patient denied EtOH and tobacco abuse. No further symptoms or complaints mentioned. Blood pressure at increased to 91/52 by the end of the second liter of LR bolus. The patient would like to receive CPR and is agreeable with short-term intubation thus the patient is a full code. Review of Systems All systems reviewed & are unremarkable except as noted in HPI and below PFSH All Active Problems On deep vein thrombosis (DVT) prophylaxis (Acute) Acute renal injury due to hypovolemia (Acute) Hypotension (Acute) Hyponatremia (Acute) Hyperkalemia (Acute) Kidney failure, acute (Acute) Stage 3 acute kidney injury (Acute) Traumatic tear of right rotator cuff (Acute 05/21/21) Medical History Hx of fracture of leg left HTN (hypertension) Rupture of right proximal biceps tendon Surgical History (Updated 10/31/21 @ 09:03 by GIANNI Harman) History of arthroscopy of right shoulder (06/28/21) SCR Hx of colonoscopy Family History (Updated 12/14/23 @ 19:33 by Maria Del Rosario Mckenna APRN) Mother Osteoporosis Social History Smoking/Tobacco Use Status: Never Smoking risk assessment performed?: Yes Alcohol Intake: current Alcohol Intake frequency: holidays/special occasions only Alcohol type: wine Drug use: Never Substance use type: does not use Current gender identity: male Do you feel safe at home: Yes Do you feel safe in your relationship?: Yes Meds Allergies and Home Medications Allergies Allergy/AdvReac Type Severity Reaction Status Date / Time No Known Drug Allergies Allergy Unknown Unverified 12/14/23 14:19 Home Medications ?Medication ?Instructions ?Recorded ?Confirmed ?Type lisinopril 10 mg tablet 20 mg PO HS 05/30/21 12/14/23 History atorvastatin 10 mg tablet 10 mg PO DAILY 12/14/23 12/14/23 History Exam Narrative Exam Narrative: Constitutional Patient is supine on stretcher, follows commands adequately but slightly slow to initiate movements. HENMT: Head is atraumatic, normocephalic, no lymphadenopathy. Facial structures with normal appearance Eyes: Well aligned, intact ROM Neck: Normal ROM, no meningeal signs Neuro:alert and oriented X3. No neurological focal deficit noted Chest:Chest is symmetrical and normal appearance Resp: Normal respiratory pattern, unlabored breathing, clear lung bilaterally Cardio:SR HR 62 on ED monitor, regular rhythm, S1, S2, no murmur, positive bilateral radial and pedal pulses GI: Abdomen is not distended, soft and non tender, bowel sounds are present : Negative Costovertebral angle tenderness, no bladder distension Back/spine/Pelvis: No back tenderness, normal alignment Integumentary: No skin lesions or rash Extremities: strength 5/5 to bilateral lower and upper extremities Psych: RASS 0, congruent mood and normal affect. Results Labs 12/14/23 15:24 12/14/23 17:57 Labs: Laboratory Results - last 24 hr 12/14/23 15:24 WBC 8.84 RBC 4.92 Hgb 14.7 Hct 40.7 MCV 83 MCH 29.9 MCHC 36.1 H RDW 12.4 Plt Count 285 MPV 9.8 Immature Gran % 0.2 Neutrophils % 69.6 Lymphocytes % 16.1 Monocytes % 10.6 Eosinophils % 2.8 Basophils % 0.7 Nucleated RBC % 0.0 Absolute Neutrophils 6.15 Absolute Lymphocytes 1.42 Absolute Monocytes 0.94 H Absolute Eosinophils 0.25 Absolute Basophils 0.06 Sodium 129 L Potassium 5.5 H Chloride 94 L Carbon Dioxide 17.3 L Anion Gap 17.7 H BUN 153 H* Creatinine 6.3 H* Est GFR (CKD-EPI 2020) 9.17 Glucose 122 H Calcium 8.7 Magnesium 2.6 H Total Bilirubin 0.40 AST 13 L ALT 26 Alkaline Phosphatase 95 Creatine Kinase 309 H Total Protein 7.5 Albumin 4.1 Last Vital Signs Temp 36.2 C L 12/14/23 14:12 Pulse 61 12/14/23 16:01 Resp 16 12/14/23 16:10 BP 67/37 L 12/14/23 16:01 Pulse Ox 98 12/14/23 14:12 Time Spent Time spent with Patient: >75 minutes Time was spent: preparing to see the patient(eg.review tests), obtaining and/or reviewing separately otained hiistory, ordering medications,tests, procedures, referring, communicating with other health coronary care unit nurse, indepentently interpreting results, counseling the patient and care coordination
[2023-12-14 17:30] LABS: Bilirubin Negative (Negative); Blood Negative (Negative); Clarity Clear (Clear); Glucose Negative (Negative); Ketones Negative (Negative); Leukocyte Esterase Negative (Negative); Nitrite Negative (Negative); Specific Gravity 1.025 (1.005-1.025); Urobilinogen 0.2 mg/dL (Up to 0.2)
[2023-12-14] MEDS: Lactated Ringers 1,000 ML 500 ML IV (18:01)
[2023-12-14 18:15] LABS: Anion Gap 15.6 mmol/L (3-11); CO2 19.4 mmol/L (21.0-32.0); Calcium 8.4 mg/dL (8.5-10.1); Chloride 96 mmol/L (98-107); Estimated GFR 11.82 (mL/min/1.73m2); Glucose 113 mg/dL (74-106); Potassium 5.3 mmol/L (3.5-5.1); Sodium 131 mmol/L (136-145)
[2023-12-14 18:18] LABS: BUN 140 mg/dL (7-18); CREATININE 5.1 mg/dL (0.70-1.30)
--- NOTE | 2023-12-14 19:17 | ED.GENADUL_ITS ---
Discharge Plan Disposition Patient Disposition: Admit to [facility] Condition: Fair Discharge Details Chief Complaint: GenMedical Clinical Impression: Stage 3 acute kidney injury, Hyponatremia, Hypotension, Acute renal injury due to hypovolemia, Kidney failure, acute, Hyperkalemia Admit Date/Time: 12/14/23 16:30 Admit Provider: Connor Holliday Attending Provider: Connor Holliday Primary Care Provider: Josep Ridley ED Provider: Simón Zhang [facility] General Date/Time Provider Initiated Documentation: 12/14/23 15:19 . Limitations to Documentation: no limitations . Information obtained by: patient . HPI Narrative: 63-year-old gentleman with past medical history of hyperlipidemia, hypertension presents for evaluation of weakness and concern for dehydration. 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 He states that he is tried drinking water Gatorade and Powerade, but he still is that it just runs right through him. Reports that his urine is dark but is still making urine daily. Denies any dizziness, headache chest pain or shortness of breath. Related Data Home Medications ?Medication ?Instructions ?Recorded ?Confirmed lisinopril 10 mg tablet 20 mg PO HS 05/30/21 12/14/23 atorvastatin 10 mg tablet 10 mg PO DAILY 12/14/23 12/14/23 Allergies Allergy/AdvReac Type Severity Reaction Status Date / Time No Known Drug Allergies Allergy Unknown Unverified 12/14/23 14:19 General Stated Complaint: GenMedical ADITHYA: 3 Exam Narrative Exam Narrative: Review of Systems: All systems reviewed & are unremarkable except as noted in HPI and below Well-developed, no acute distress NCAT PERRL, normal conjunctiva RRR no murmur Unlabored respiratory effort Nondistended abdomen soft nontender Extremities w/o deformity, no cyanosis, no edema No rashes or lesions. no focal neurologic deficits Appropriate mood and affect Course Vital Signs Vital signs: Vital Signs Temperature 36.2 C L 12/14/23 14:12 Pulse 96 H 12/14/23 14:12 Respiratory Rate 16 12/14/23 14:12 Blood Pressure 95/66 L 12/14/23 14:12 Pulse Oximetry 98 12/14/23 14:12 Temperature 36.2 C L 07/21/24 17:09 Temperature Source Skin 12/14/23 17:09 Pulse 61 12/14/23 18:30 Pulse 74 12/14/23 19:00 Respiratory Rate 15 12/14/23 19:00 Respiratory Effort Normal 12/14/23 17:06 Blood Pressure 107/69 12/14/23 18:30 Blood Pressure Mean 81 12/14/23 18:30 Blood Pressure Position Sitting 12/14/23 14:12 Pulse Oximetry 98 12/14/23 17:09 Oxygen Delivery Method Room Air 12/14/23 17:09 Oxygen Flow Rate 0 12/14/23 17:09 Pain Level 0 12/14/23 14:12 Lab/Test Results Lab/Test Results: Laboratory Tests Range/Units 12/14/23 15:24 WBC (4.4-10.8) 10^3/uL 8.84 RBC (4.36-5.78) 10^6/uL 4.92 Hgb (13.5-17.5) g/dL 14.7 Hct (40.0-50.0) % 40.7 MCV (80-95) fL 83 MCH (27.0-33.0) pg 29.9 MCHC (32.0-36.0) % 36.1 H RDW (11.8-14.1) % 12.4 Plt Count (130-400) 10^3/uL 285 MPV (8.0-11.0) fL 9.8 Immature Gran % % 0.2 Neutrophils % % 69.6 Lymphocytes % % 16.1 Monocytes % % 10.6 Eosinophils % % 2.8 Basophils % % 0.7 Nucleated RBC % (0.0-0.3) % 0.0 Absolute Neutrophils (1.2-6.7) 10^3/uL 6.15 Absolute Lymphocytes (1.2-3.4) 10^3/uL 1.42 Absolute Monocytes (0.1-0.8) 10^3/uL 0.94 H Absolute Eosinophils (0.0-0.7) 10^3/uL 0.25 Absolute Basophils (0.0-0.2) 10^3/uL 0.06 Sodium (136-145) mmol/L 129 L Potassium (3.5-5.1) mmol/L 5.5 H Chloride (98-107) mmol/L 94 L Carbon Dioxide (21.0-32.0) mmol/L 17.3 L Anion Gap (3-11) mmol/L 17.7 H BUN (7-18) mg/dL 153 H* Creatinine (0.70-1.30) mg/dL 6.3 H* Est GFR (CKD-EPI 2020) (mL/min/1.73m2) 9.17 Glucose (74-106) mg/dL 122 H Calcium (8.5-10.1) mg/dL 8.7 Magnesium (1.8-2.4) mg/dL 2.6 H Total Bilirubin (0.2-1.0) mg/dL 0.40 AST (15-37) U/L 13 L ALT (16-63) U/L 26 Alkaline Phosphatase (46-116) U/L 95 Creatine Kinase (39-308) U/L 309 H Total Protein (6.4-8.2) g/dL 7.5 Albumin (3.4-5.0) g/dL 4.1 Medical Decision Making Emergent evaluation of possible dehydration. Patient reports he has been working outside in the heat all week. His blood pressure is noted to be low. Initial differential includes dehydration, volume depletion, electrolyte derangement. Initial plan for fluid resuscitation, will check urinalysis. Lab work reviewed. No significant derangement in the CBC. No anemia, no leukocytosis. There are multiple derangements in his chemistry. He has hyponatremia, hyperkalemia, and elevated anion gap with significant elevation in BUN and creatinine. His CPK is only slightly elevated at 309, I do not suspect that rhabdomyolysis is contributing significantly to his renal insufficiency. An EKG was obtained. EKG interpretation by me, sinus rhythm rate 62, normal axis, no acute ischemic changes, no peaked T waves no dysrhythmia. The patient is being resuscitated with IV fluids. He is continuing to make urine and has no signs of urinary obstruction or retention with his bladder scan only having 150 cc. At this time there is no indication for emergent dialysis. I discussed with the hospitalist who will admit to their service for further management and close monitoring. Medical Records Medical records reviewed: Yes I reviewed the patient's medical records. Lab Data Lab results reviewed: Yes I reviewed the patient's lab results. Quality:SDKS Health Related Social Needs: No Data to Display Critical Care Time Critical Care Time Critical Care Time: Yes Total Critical Care Time: 34 Attestation: CRITICAL CARE Upon my evaluation, this patient had a high probability of imminent or life- threatening deterioration due to renal failure which required my direct attention, intervention, and personal management. I have personally provided 34 minutes of critical care time exclusive of time spent on separately billable procedures. Time includes review of laboratory data, radiology results, discussion with consultants, and monitoring for potential decompensation. Interventions were performed as documented above PFSH All Active Problems (Updated 12/14/23 @ 19:23 by Simón Zhang MD) On deep vein thrombosis (DVT) prophylaxis (Acute) Acute renal injury due to hypovolemia (Acute) Hypotension (Acute) Hyponatremia (Acute) Hyperkalemia (Acute) Kidney failure, acute (Acute) Stage 3 acute kidney injury (Acute) Traumatic tear of right rotator cuff (Acute 05/21/21) Medical History Hx of fracture of leg left HTN (hypertension) Rupture of right proximal biceps tendon Surgical History History of arthroscopy of right shoulder (06/28/21) SCR Hx of colonoscopy Social History Smoking/Tobacco Use Status: Never Smoking risk assessment performed?: Yes Alcohol Intake: current Alcohol Intake frequency: holidays/special occasions only Alcohol type: wine Drug use: Never Substance use type: does not use Current gender identity: male Do you feel safe at home: Yes Do you feel safe in your relationship?: Yes
[2023-12-14 19:21] LABS: Sodium, Urine 51 mmol/L
[2023-12-14] MEDS: Normal Saline 1,000 ML 150 ML IV (19:24)
[2023-12-14] MEDS: Lidocaine 2% Jelly 6 ML SYR ×2 (21:17)
[2023-12-14] MEDS: Normal Saline Flush 10 ML SYR IVP (22:54)
[2023-12-14] MEDS: Lactated Ringers 1,000 ML 150 ML IV (23:01)
[2023-12-15] VITALS (20 sets, daily range): BP systolic 84–119; BP diastolic 52–74; PULSE 53–83; RESP 8–19; TEMP 36.4–36.9; O2SAT 98–99
[2023-12-15 00:01] LABS: Anion Gap 13.6 mmol/L (3-11); CO2 21.4 mmol/L (21.0-32.0); Calcium 8.7 mg/dL (8.5-10.1); Chloride 100 mmol/L (98-107); Estimated GFR 17.38 (mL/min/1.73m2); Glucose 123 mg/dL (74-106); Potassium 4.5 mmol/L (3.5-5.1); Sodium 135 mmol/L (136-145)
[2023-12-15 00:07] LABS: BUN 127 mg/dL (7-18); CREATININE 3.7 mg/dL (0.70-1.30)
[2023-12-15 03:26] LABS: Anion Gap 11.8 mmol/L (3-11); CO2 21.2 mmol/L (21.0-32.0); Calcium 8.1 mg/dL (8.5-10.1); Chloride 101 mmol/L (98-107); Estimated GFR 22.35 (mL/min/1.73m2); Glucose 111 mg/dL (74-106); Potassium 4.8 mmol/L (3.5-5.1); Sodium 134 mmol/L (136-145)
[2023-12-15 03:32] LABS: BUN 114 mg/dL (7-18)
[2023-12-15] MEDS: Normal Saline Flush 10 ML SYR IVP ×2 (05:23→19:37)
[2023-12-15] MEDS: Lactated Ringers 1,000 ML 150 ML IV (05:38)
[2023-12-15 06:01] LABS: Abs Immature Grans 0.03 10^3/uL (0.0-0.06); Absolute Basophil Count 0.04 10^3/uL (0.0-0.2); Absolute Monocyte Count 0.66 10^3/uL (0.1-0.8); Absolute Neutrophil Count 4.13 10^3/uL (1.2-6.7); Basophils % 0.7 %; HCT 35.5 % (40.0-50.0); HGB 12.8 g/dL (13.5-17.5); Immature Grans % 0.5 %; Lymphocytes % 14.9 %; MCH 30.1 pg (27.0-33.0); MCHC 36.1 % (32.0-36.0); MCV 84 fL (80-95); MPV 9.8 fL (8.0-11.0); Monocytes % 10.9 %; Platelet Count 216 10^3/uL (130-400); RBC 4.25 10^6/uL (4.36-5.78); RDW 12.6 % (11.8-14.1); RDW-SD 38.1 fL; WBC 6.06 10^3/uL (4.4-10.8)
[2023-12-15 06:20] LABS: ALT 24 U/L (16-63); AST 10 U/L (15-37); Albumin 3.3 g/dL (3.4-5.0); Alkaline Phosphatase 75 U/L (46-116); Anion Gap 10.7 mmol/L (3-11); Bilirubin, Total 0.36 mg/dL (0.2-1.0); CO2 22.3 mmol/L (21.0-32.0); CREATININE 2.5 mg/dL (0.70-1.30); Calcium 8.3 mg/dL (8.5-10.1); Chloride 102 mmol/L (98-107); Estimated GFR 27.82 (mL/min/1.73m2); Glucose 111 mg/dL (74-106); Potassium 5.2 mmol/L (3.5-5.1); Sodium 135 mmol/L (136-145); Total Protein 6.1 g/dL (6.4-8.2)
[2023-12-15 06:22] LABS: Magnesium 2.5 mg/dL (1.8-2.4)
[2023-12-15 06:24] LABS: BUN 108 mg/dL (7-18)
--- NOTE | 2023-12-15 08:00 | DI.US_ITS ---
Exam(s) US RENAL EXAM: US RENAL CLINICAL HISTORY: Acute kidney Failure. TECHNIQUE: Mccoy scale, color and spectral Doppler were used. COMPARISON: No exams were available for comparison FINDINGS: Renal size in cm: Right: 10.7. Left: 11.1. Echogenicity: Normal. Hydronephrosis: No. Cyst or mass: No. Nephrolithiasis: No. Other findings: None. Bladder:Normal. There is a Power catheter in place. Ureteral jets: Right: Visualized and unremarkable. Left: Visualized and unremarkable. Prevoid vol:605 cc Postvoid vol:0 cc Prostate: 46 cc Renal color flow: Symmetric and within normal limits. IMPRESSION: 1. Unremarkable kidneys. No evidence of nephrolithiasis or hydronephrosis. 2. Enlarged prostate gland. DATA REPOSITORY:
--- NOTE | 2023-12-15 08:58 | PDOC.CMIN ---
Date of service: 12/15/23 Time of Service: 08:58 Care Management Initial Assmt Initial Assessment Reason for Hospitalization: dehydration with hypotension Functional Status/Living Situation Patient Presentation: Rufina was sitting up in bed in the ICU when CM met with him. He was quite pleasant and agreeable to conversation. Luan talked about his family, his pets and his job. Luan lives in a single family home in [facility] with his Evangelina and 2 dogs. They have a son and a daughter but are not in close contact. They also have several granddaughters. 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 He is independent at baseline and does not receive any community services. Clinically, Luan is improving slowly. His creatinine is down to 2.5 from a high of 6.3 on admission and his BUN is now 108 vs 153 in the ED on admission. His urine output is good and his blood pressure is improving. He shared that he feels much, much better than when he first came to the hospital. Town of Residence: [place] [facility] Resides with: Spouse (Evangelina) Significant Other/Family: [facility] Employment Status: Employed Instrumental Activities of Daily Living (ADLs): Independent Advance Directives Advance Directives: Do you have an Advance Directive: N 08/31/13 09:07 AD On File at [facility]: N 09/01/13 10:04 Date Asked 12/14/23 12/14/23 14:35 AD Date Reviewed COLST On File at [facility] COLST Date Scanned Code Status Resuscitation Status Full Code Insurance Coverage/Financial Issues Insurance: [facility] Medicare Replacement Plan Care Team Visit Care Team Role Provider Type GIANNI Rice Primary Care Provider [employer] Simón Zhang MD Emergency Provider [facility] STAFF PHYSICIAN Connor Holliday Admit Provider [facility] STAFF PHYSICIAN Attending Provider Discharge Potential Discharge Needs: PCP F/U Appt Anticipated Barriers to Discharge: Medical Status Patient/Family Education Needs: Review discharge instructions, discuss Ask Me Three Transportation: Private vehicle Plan: Anticipate Luan will be discharged home with no new services when medically stable. He will follow up with his community providers and plan of care and transport with family. CM will follow and continue to suppport discharge planning concerns. PFSH All Active Problems (Updated 12/15/23 @ 09:31 by Connor Holliday) On deep vein thrombosis (DVT) prophylaxis (Acute) Acute renal injury due to hypovolemia (Acute) Hypotension (Acute) Hyponatremia (Acute) Hyperkalemia (Acute) Kidney failure, acute (Acute) Stage 3 acute kidney injury (Acute) Traumatic tear of right rotator cuff (Acute 05/21/21) Medical History Hx of fracture of leg left HTN (hypertension) Rupture of right proximal biceps tendon Surgical History History of arthroscopy of right shoulder (06/28/21) SCR Hx of colonoscopy Family History (Updated 12/14/23 @ 19:33 by Maria Del Rosario Mckenna APRN) Mother Osteoporosis Social History Smoking/Tobacco Use Status: Never Smoking risk assessment performed?: Yes Alcohol Intake: current Alcohol Intake frequency: holidays/special occasions only Alcohol type: wine Drug use: Never Substance use type: does not use Housing: house Current gender identity: male Do you feel safe at home: Yes Do you feel safe in your relationship?: Yes SDOH(Care Management) Screening Will the Patient Participate in the Screening?: Declined to provide
--- NOTE | 2023-12-15 09:17 | PGE_ITS ---
Date of Service Date of service: 12/15/23 Time of Service: 09:17 Assessment and Plan Assessment and plan (1) Hypotension: Status: Acute Assessment and plan: Most likely d/t severe dehydration in setting of JAIME inhibitor therapy, also took some excedrin (aspirin containing) but not excessive s/p 3 liters of LR on admission. BPs still soft, not symptomatic, increase LR to 200/hr Qualifiers: Hypotension type: hypotension due to hypovolemia Qualified Code(s): E86.1 - Hypovolemia (2) Stage 3 acute kidney injury: Status: Acute Assessment and plan: As above c/w prerenal on presentation. Cr 6.3 and BUN 153 ratio >20 pointing to prerenal SHIRLEY with gravity> 1.025, though random urine sodium pending with value > 40 indicating possible intra or post renal component, though this may be to appropriate ADH stimulation with hypovolemia. Some mild LUTS but no obstruction, kidney/bladder u/s now No signs of intrinsic disease on urinalysis. Power for strict I&O GFR much improved overnight, anion theodore closing with decreasing BUN, hyponatremia resolving as expected. (3) Hyperkalemia: Status: Acute Assessment and plan: Secondary to SHIRLEY and jaime inhibitor Potassium at 5.5, down to 4.8 but 5.2 this morning. EKG negative on admission, did not receive calcium gluconate or specific therapies, just hydration. Continue telemetry (4) Hyponatremia: Status: Acute Assessment and plan: Hypovolemic, correcting with hydration. Continue IV fluid for now. (5) On deep vein thrombosis (DVT) prophylaxis: Status: Acute Assessment and plan: TEDs, he is low risk per Manoj Subjective Subjective Patient reports: feels better and tolerating a regular diet; denies diarrhea, nausea, vomiting or fever Interval history since last seen: Feels well, not dizzy standing and walking, eating and drinking. Power placed last night. No pain. Exam Narrative Exam Narrative: Well-developed, no acute distress, standing up cleaning himself normal conjunctiva, no icterus, MMM RRR no murmur Unlabored respiratory effort,lungs CTAB Nondistended abdomen soft nontender. No CVAT Extremities w/o deformity, no cyanosis, no edema No rashes or lesions. Objective Last Vital Signs Temp 36.5 C 12/15/23 06:01 Pulse 53 L 07/22/24 06:01 Resp 10 L 12/15/23 06:01 BP 96/54 L 12/15/23 06:01 Pulse Ox 99 12/15/23 04:07 Laboratory Results - last 24 hr 12/14/23 12/14/23 12/14/23 15:24 17:20 17:57 WBC 8.84 RBC 4.92 Hgb 14.7 Hct 40.7 MCV 83 MCH 29.9 MCHC 36.1 H RDW 12.4 Plt Count 285 MPV 9.8 Immature Gran % 0.2 Neutrophils % 69.6 Lymphocytes % 16.1 Monocytes % 10.6 Eosinophils % 2.8 Basophils % 0.7 Nucleated RBC % 0.0 Absolute Neutrophils 6.15 Absolute Lymphocytes 1.42 Absolute Monocytes 0.94 H Absolute Eosinophils 0.25 Absolute Basophils 0.06 Sodium 129 L 131 L Potassium 5.5 H 5.3 H Chloride 94 L 96 L Carbon Dioxide 17.3 L 19.4 L Anion Gap 17.7 H 15.6 H BUN 153 H* 140 H* Creatinine 6.3 H* 5.1 H* Est GFR (CKD-EPI 2020) 9.17 11.82 Glucose 122 H 113 H Calcium 8.7 8.4 L Magnesium 2.6 H Total Bilirubin 0.40 AST 13 L ALT 26 Alkaline Phosphatase 95 Creatine Kinase 309 H Total Protein 7.5 Albumin 4.1 Urine Color Yellow Urine Clarity Clear Urine pH 5.0 Ur Specific [place] 1.025 Urine Protein Negative Urine Ketones Negative Urine Blood Negative Urine Nitrite Negative Urine Bilirubin Negative Urine Urobilinogen 0.2 Ur Leukocyte Esterase Negative Ur Random Sodium Urine Glucose Negative 12/14/23 12/14/23 12/14/23 18:40 19:00 23:00 WBC RBC Hgb Hct MCV MCH MCHC RDW Plt Count MPV Immature Gran % Neutrophils % Lymphocytes % Monocytes % Eosinophils % Basophils % Nucleated RBC % Absolute Neutrophils Absolute Lymphocytes Absolute Monocytes Absolute Eosinophils Absolute Basophils Sodium Cancelled 135 L Potassium Cancelled 4.5 Chloride Cancelled 100 Carbon Dioxide Cancelled 21.4 Anion Gap Cancelled 13.6 H BUN Cancelled 127 H* Creatinine Cancelled 3.7 H* Est GFR (CKD-EPI 2020) Cancelled 17.38 Glucose Cancelled 123 H Calcium Cancelled 8.7 Magnesium Total Bilirubin AST ALT Alkaline Phosphatase Creatine Kinase Total Protein Albumin Urine Color Urine Clarity Urine pH Ur Specific [place] Urine Protein Urine Ketones Urine Blood Urine Nitrite Urine Bilirubin Urine Urobilinogen Ur Leukocyte Esterase Ur Random Sodium 51 Urine Glucose 12/15/23 12/15/23 03:00 05:40 WBC 6.06 RBC 4.25 L Hgb 12.8 L Hct 35.5 L MCV 84 MCH 30.1 MCHC 36.1 H RDW 12.6 Plt Count 216 MPV 9.8 Immature Gran % 0.5 Neutrophils % 68.0 Lymphocytes % 14.9 Monocytes % 10.9 Eosinophils % 5.0 Basophils % 0.7 Nucleated RBC % 0.0 Absolute Neutrophils 4.13 Absolute Lymphocytes 0.90 L Absolute Monocytes 0.66 Absolute Eosinophils 0.30 Absolute Basophils 0.04 Sodium 134 L 135 L Potassium 4.8 5.2 H Chloride 101 102 Carbon Dioxide 21.2 22.3 Anion Gap 11.8 H 10.7 BUN 114 H* 108 H* Creatinine 3.0 H 2.5 H Est GFR (CKD-EPI 2020) 22.35 27.82 Glucose 111 H 111 H Calcium 8.1 L 8.3 L Magnesium 2.5 H Total Bilirubin 0.36 AST 10 L ALT 24 Alkaline Phosphatase 75 Creatine Kinase Total Protein 6.1 L Albumin 3.3 L Urine Color Urine Clarity Urine pH Ur Specific [place] Urine Protein Urine Ketones Urine Blood Urine Nitrite Urine Bilirubin Urine Urobilinogen Ur Leukocyte Esterase Ur Random Sodium Urine Glucose Time Spent with Patient Time Spent with Patient: 35-49 minutes Time was spent: preparing to see the patient(eg.review tests), obtaining and/or reviewing separately otained hiistory, ordering medications,tests, procedures, referring, communicating with other health medicare coordinator, indepentently interpreting results, counseling the patient and care coordination
[2023-12-15] MEDS: Lactated Ringers 1,000 ML 200 ML IV ×3 (12:05→23:40)
--- NOTE | 2023-12-15 16:39 | PHA.REVIEW2 ---
Pharmacy Admission Review Admission Clinical Review Admission Pharmacy Review: On deep vein thrombosis (DVT) prophylaxis (Acute) Acute renal injury due to hypovolemia (Acute) Hypotension (Acute) Hyponatremia (Acute) Hyperkalemia (Acute) Kidney failure, acute (Acute) Stage 3 acute kidney injury (Acute) No Known Drug Allergies Allergy (Unverified 12/14/23 14:19) Unknown Resuscitation Status Full Code Height 6 ft Weight 82.8 kg Pharmacy Admission Review Renal Dosing Renal Dosing: BUN 108 mg/dL (7-18) H* 12/15/23 05:40 Creatinine 2.5 mg/dL (0.70-1.30) H 12/15/23 05:40 Medications needing adjustments: Reviewed (crcl = 34, SHIRLEY improved from yesterday (SCr 2.5 today from 6.3)) List of meds needing interventions: not currently on any medications that require renal dosing, will need to monitor for addition of any new meds that may need adjusting Anticoagulation Anticoagulation: Hgb 12.8 g/dL (13.5-17.5) L 12/15/23 05:40 Hct 35.5 % (40.0-50.0) L 12/15/23 05:40 Plt Count 216 10^3/uL (130-400) 12/15/23 05:40 Creatinine 2.5 mg/dL (0.70-1.30) H 12/15/23 05:40 DVT Prophylaxis: Reviewed (SCDs (low risk per Manoj prediction score)) Therapeutic Anticoagulation: N/A Opiate Usage Evaluate Pain Scale/Pains Meds: N/A (not on any opiates) Relevant Labs Relevant Labs: Sodium 135 mmol/L (136-145) L 12/15/23 05:40 Potassium 5.2 mmol/L (3.5-5.1) H 12/15/23 05:40 Chloride 102 mmol/L (98-107) 12/15/23 05:40 Magnesium 2.5 mg/dL (1.8-2.4) H 12/15/23 05:40 Electrolytes, C-Reactive P, ESR: Reviewed (electrolyte abnormalities improving with hydration) DM Control DM Control: N/A (not diabetic. last A1c 01/2023 = 5.8%) Cardiac Review BP, HR, EF%: Reviewed QTc Review QTc: Reviewed (QTc = 367 12/14/23) IV to PO Switch IV Medications: N/A Home Meds Home Med List reviewed: Reviewed Relevent Home Meds Not ordered & why?: home meds (atorvastatin, lisinopril) currently on hold d/t SHIRLEY, hyperkalemia Current Meds Current Medication Order Review: Reviewed
[2023-12-16 01:14] VITALS: BP 92/54; PULSE 52; PULSE 54; RESP 15; TEMP 36.9; O2SAT 99
[2023-12-16 04:41] VITALS: BP 97/62; PULSE 50; RESP 14
[2023-12-16] MEDS: Lactated Ringers 1,000 ML 200 ML IV (04:43)
[2023-12-16 07:04] LABS: Anion Gap 5.7 mmol/L (3-11); BUN 56 mg/dL (7-18); CO2 27.3 mmol/L (21.0-32.0); CREATININE 1.2 mg/dL (0.70-1.30); Calcium 8.7 mg/dL (8.5-10.1); Chloride 106 mmol/L (98-107); Estimated GFR 67.11 (mL/min/1.73m2); Glucose 107 mg/dL (74-106); Potassium 5.8 mmol/L (3.5-5.1); Sodium 139 mmol/L (136-145)
[2023-12-16 08:30] VITALS: BP 107/71; PULSE 61; PULSE 63; RESP 19
--- NOTE | 2023-12-16 08:30 | RT.EKG_ITS ---
APPROVED REPORT Exam: Resting ECG Reason for Exam: hyperkalemia Patient Location: I HR:64 bpm ECG Measurements Heart Rate 64 AXIS ND 168 P 73 QRSd 88 QRS 59 QT 367 T 42 QTc 380 Conclusion Sinus rhythm...normal P axis, V-rate 60- 99 Normal Electrocardiogram
[2023-12-16] MEDS: Sodium Zirconium Cyclosilicate 10 GM PKT PO ×3 (08:56→22:06)
[2023-12-16] MEDS: Normal Saline Flush 10 ML SYR IVP ×2 (08:56→20:23)
[2023-12-16 09:19] LABS: Potassium 5.5 mmol/L (3.5-5.1)
--- NOTE | 2023-12-16 13:48 | PDOC.CMDIS ---
Date of service: 12/16/23 Time of Service: 13:48 Care Management Discharge SDOH Health Related Social Needs: No Data to Display
[2023-12-16 14:10] VITALS: BP 105/57; PULSE 58; RESP 18; TEMP 36.7; O2SAT 95
--- NOTE | 2023-12-16 14:42 | W.PC.ACHO ---
Registration Status: Primary Language: Preferred Language: ED Information & Data Chief Complaint GenMedical 12/14/23 19:23 Triage Note doesn't feel well. started 12/14/23 14:12 friday after working in the heat. travels a lot for work. has been swimming in the river to cool off. took alkaseltzer for queeziness after eating pizza. denies fever or diarrhea. drinking more and urinating more. states urine is dark. denies dizziness or syncope. Medical / Surgical History (Last Reviewed 12/14/23 @ 19:32 by Maria Del Rosario Mckenna APRN) Hx of fracture of leg HTN (hypertension) Rupture of right proximal biceps tendon (Last Reviewed 12/14/23 @ 19:18 by Simón Zhang MD) History of arthroscopy of right shoulder (06/28/21) Hx of colonoscopy Most Recent Vital Signs Temperature 36.7 C 12/16/23 14:10 Temperature Source Temporal Artery Scan 12/16/23 14:10 Pulse 58 L 12/16/23 14:10 Pulse Rhythm Regular 12/16/23 05:01 Pulse 63 12/16/23 08:30 Respiratory Rate 18 12/16/23 14:10 Respiratory Effort Normal 12/16/23 08:41 Respiratory Depth Normal 12/16/23 08:41 Respiratory Pattern Normal 12/16/23 08:41 Blood Pressure 105/57 L 12/16/23 14:10 Blood Pressure Mean 82 12/16/23 08:30 Blood Pressure Position Sitting 12/14/23 14:12 Pulse Oximetry 95 12/16/23 14:10 Oxygen Delivery Method Room Air 12/16/23 14:10 Oxygen Flow Rate 0 12/16/23 14:10 Pain Level 0 12/16/23 14:10 Comment cuff changed to navy blue cuff from light blue cuff 12/15/23 00:38 Comment navy blue cuff 12/15/23 00:08 Allergies No Known Drug Allergies Allergy (Unverified 12/14/23 14:19) Unknown Precautions Isolation Standard precaution 12/14/23 17:06 Active Medications Generic Name Dose Route Start Last Admin Trade Name Freq PRN Reason Stop Dose Admin Sodium Chloride 0 ml 12/14/23 18:12 12/15/23 05:23 Normal Saline Flush 10 Ml Syr IVP 20 ml PRN PRN Administration Sodium Chloride 0 ml 12/14/23 20:00 12/16/23 08:56 Normal Saline Flush 10 Ml Syr IVP 40 ml BID HAYLEE Administration Sodium Zirconium Cyclosilicate 10 gm 12/16/23 14:30 12/16/23 14:19 Sodium Zirconium Cyclosilicate 10 Gm Pkt PO 12/18/23 06:31 10 gm TID@[id number],1430,2230 HAYLEE Administration IV IV Catheter Type [Right Peripheral IV Antecubital] IV Catheter Type [Left Forearm Saline Lock ] IV Catheter Gauge [Right 18 Antecubital] IV Catheter Gauge [Left 18 Forearm] Diet Orders Category Date Time Status Renal [DIET] Nutrition 12/16/23 Lunch Active Diagnostics 12/16/23 12/16/23 12/16/23 Range/Units 16:00 08:55 05:25 Sodium Pending 139 (136-145) mmol/L Potassium Pending 5.5 H 5.8 H (3.5-5.1) mmol/L Chloride Pending 106 (98-107) mmol/L Carbon Dioxide Pending 27.3 (21.0-32.0) mmol/L Anion Gap Pending 5.7 (3-11) mmol/L BUN Pending 56 H (7-18) mg/dL Creatinine Pending 1.2 D (0.70-1.30) mg/dL Est GFR (CKD-EPI 2020) Pending 67.11 (mL/min/1.73m2) Glucose Pending 107 H (74-106) mg/dL Calcium Pending 8.7 (8.5-10.1) mg/dL Intake and Output - 24 Hour Total 12/14/23 14:08 thru 12/16/23 14:11 Intake Total 47409.000 Output Total 6225 Balance 4925.000 Weight 84.1 kg [place]: [place] [address].000 Oral 1060 Output: Urine 6225 Other: Urine Color Straw Urine Appearance Clear Comment Coyle reported leaking by patient. Bladder scan confirmed patency of catheter. Urine is yellow with no clots Voiding Methods Bedside Commode Urinary Catheter Urinary Catheter Date of 12/14/23 Insertion [Coude] Time of insertion [Coude] 22:00 Falls Risk Assessment History of Falls No History 12/14/23 20:10 Contributing Factors Unstable 12/14/23 20:10 Ambulatory Aids Independent 12/14/23 20:10 Tubes/Lines W/no contributing factors 12/14/23 20:10 Gait Evaluation No gait disturbance 12/14/23 20:10 Cognition No cognitive impairment 12/14/23 20:10 Fall Total Score 13 12/14/23 20:10 Level of Risk Standard/Low Risk 12/14/23 20:10 Problems (Last Reviewed 12/14/23 @ 19:32 by Maria Del Rosario Mckenna APRN) On deep vein thrombosis (DVT) prophylaxis (Acute) Acute renal injury due to hypovolemia (Acute) Hypotension (Acute) Hyponatremia (Acute) Hyperkalemia (Acute) Kidney failure, acute (Acute) Stage 3 acute kidney injury (Acute) v v v v v v v v v Sending and/or Receiving Nurses: Please use comment section below to note any information pertinent to the patient hand-off not included above. Information / Comments: At 1350 hrs. report taken from [facility] Re[facility], Patient is alert and oriented x 4.; with ruthie coyle connected to urinary bag w/ an output of clear urine. Denied of pain, has Cont. tele. Transferred to wheelchair to Rm [id number]. No further voiced complaints. Oriented to call lights system. Report received from:
[2023-12-16 15:02] VITALS: BP 96/58; PULSE 60; RESP 18; TEMP 36.7; O2SAT 97
[2023-12-16 16:47] LABS: Anion Gap 6.7 mmol/L (3-11); BUN 41 mg/dL (7-18); CO2 27.3 mmol/L (21.0-32.0); CREATININE 1.3 mg/dL (0.70-1.30); Calcium 8.6 mg/dL (8.5-10.1); Chloride 105 mmol/L (98-107); Estimated GFR 60.96 (mL/min/1.73m2); Glucose 110 mg/dL (74-106); Potassium 5.5 mmol/L (3.5-5.1); Sodium 139 mmol/L (136-145)
--- NOTE | 2023-12-16 18:06 | PGE_ITS ---
Date of Service Date of service: 12/16/23 Time of Service: 14:04 Assessment and Plan Assessment and plan (1) Hypotension: Status: Acute Assessment and plan: Most likely d/t severe dehydration in setting of JAIME inhibitor therapy, also took some excedrin (aspirin containing) but not excessive s/p 3 liters of LR on admission. Now resolved. Stopped fluid today. Qualifiers: Hypotension type: hypotension due to hypovolemia Qualified Code(s): E86.1 - Hypovolemia (2) Stage 3 acute kidney injury: Status: Acute Assessment and plan: As above c/w prerenal on presentation. Cr 6.3 and BUN 153 ratio >20 pointing to prerenal SHIRLEY with gravity> 1.025, though random urine sodium pending with value > 40 indicating possible intra or post renal component, though this may be to appropriate ADH stimulation with hypovolemia. Some mild LUTS but no obstruction, kidney/bladder u/s now No signs of intrinsic disease on urinalysis. Now close to resolved. Follow in AM off IV fluids. Coyle out. (3) Hyperkalemia: Status: Acute Assessment and plan: Secondary to SHIRLEY and jaime inhibitor Potassium at 5.5, down to 4.8 but 5.6 this morning. EKG again reassuring. I started potassium binder, renal diet, but K+ not down yet. Trend is concerning. For this reason, keep overnight. Continue telemetry (4) Hyponatremia: Status: Acute Assessment and plan: Hypovolemic, corrected with hydration. Off IV fliuds. (5) On deep vein thrombosis (DVT) prophylaxis: Status: Acute Assessment and plan: TEDs, he is low risk per Manoj Subjective Subjective Patient reports: no new complaints, feels better and tolerating a regular diet; denies diarrhea, nausea, vomiting, shortness of breath or fever Interval history since last seen: Feels well. Still has coyle in. Eating and drinking. no palpitations or chest pain. Exam Narrative Exam Narrative: Well-developed, no acute distress, standing up cleaning himself normal conjunctiva, no icterus, MMM RRR no murmur Unlabored respiratory effort,lungs CTAB Nondistended abdomen soft nontender. Extremities w/o deformity, no cyanosis, no edema Objective Last Vital Signs Temp 36.7 C 12/16/23 15:02 Pulse 60 12/16/23 15:02 Resp 18 12/16/23 15:02 BP 96/58 L 12/16/23 15:02 Pulse Ox 97 12/16/23 15:02 Laboratory Results - last 24 hr 12/16/23 12/16/23 12/16/23 05:25 08:55 14:25 Sodium 139 139 Potassium 5.8 H 5.5 H 5.5 H Chloride 106 105 Carbon Dioxide 27.3 27.3 Anion Gap 5.7 6.7 BUN 56 H 41 H Creatinine 1.2 D 1.3 Est GFR (CKD-EPI 2020) 67.11 60.96 Glucose 107 H 110 H Calcium 8.7 8.6 Time Spent with Patient Time Spent with Patient: 35-49 minutes Time was spent: preparing to see the patient(eg.review tests), obtaining and/or reviewing separately otained hiistory, ordering medications,tests, procedures, referring, communicating with other health career services representative, indepentently interpreting results, counseling the patient and care coordination
[2023-12-16 20:18] VITALS: BP 106/58; PULSE 61; RESP 17; TEMP 36.9; O2SAT 96
[2023-12-17 03:37] VITALS: BP 98/58; PULSE 58; RESP 18; TEMP 37.4; O2SAT 97
[2023-12-17] MEDS: Sodium Zirconium Cyclosilicate 10 GM PKT PO (05:43)
[2023-12-17 07:22] LABS: Anion Gap 3.8 mmol/L (3-11); BUN 26 mg/dL (7-18); CO2 30.2 mmol/L (21.0-32.0); Calcium 8.4 mg/dL (8.5-10.1); Chloride 105 mmol/L (98-107); Estimated GFR 83.52 (mL/min/1.73m2); Glucose 109 mg/dL (74-106); Potassium 4.7 mmol/L (3.5-5.1); Sodium 139 mmol/L (136-145)
[2023-12-17] MEDS: Normal Saline Flush 10 ML SYR IVP (07:43)
[2023-12-17 07:54] VITALS: BP 110/68; PULSE 57; RESP 16; TEMP 37.1; O2SAT 96
--- NOTE | 2023-12-17 08:59 | PDOC.CMPRO ---
Date of service: 12/17/23 Time of Service: 08:59 Care Management Progress Note Discharge Potential Discharge Needs: PCP F/U Appt Anticipated Barriers to Discharge: Medical Status Patient/Family Education Needs: Review discharge instructions, discuss Ask Me Three Transportation: Private vehicle Plan: Anticipate Luan will be discharged home with no new services. He will follow up with his PCP and plan of care and transport with family. CM will follow and continue to support discharge needs. SDOH(Care Management) Screening Will the Patient Participate in the Screening?: Declined to provide
--- NOTE | 2023-12-17 09:58 | W.PM.DS.N ---
Date of service: 12/17/23 Time of Service: 09:58 DS: Diagnosis Discharge Diagnosis (1) Hypotension: Status: Acute Asessment and Plan: resolved (2) Stage 3 acute kidney injury: Status: Acute (3) Hyperkalemia: Status: Acute (4) Hyponatremia: Status: Acute Discharge Plan Disposition Patient Disposition: Home Condition: Good Discharge Details Reason For Visit: Acute Renal Failure,Hypotension,Dehydration,Hyperk Admit Date/Time: 12/14/23 16:30 Admit Provider: Connor Holliday Attending Provider: Connor Holliday Primary Care Provider: Josep Ridley Hospital Course Hospital Course: 63 yo M with history of HTN on lisinopril who drove himself to the emergency room feeling fatigued and queasy. 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 On admission his BUN was 153 and creatinine was 6.3 with K+ of 5.5 and he was hypotensive to the 60s/30s. He responded to IV fluids in the emergency room and his renal function improved steadily and symptoms resolved. A coyle was placed to monitor urine output, but he did not have obstruction. Renal ultrasound was normal but pelvic ultrasound did not a large prostate of 46cc. His potassium was trending back up on the day prior to discharge despite normalization of the GFR. He was started on Lokelma and treated for 24 hours and sent home with 48 hours of Kayexalate (much cheaper at pharmacy). He should recheck BMP in 1 week, followed by appointment with PCP. Lisinopril was held and was not resumed. His blood pressure was still 110/68 after 3 days off his medication. We discussed changing blood pressure medication class if he needs to resume antihypertensive therapy in the future, this was deferred to the PCP. Home Meds and New Rx's Prescriptions: New sodium polystyrene sulfonate Powder 15 g PO BID 2 Days Qty: 60 0RF Rx Instructions: cancel lokelma Continued atorvastatin 10 mg tablet 10 mg PO DAILY Patient Comments: TAKE 1 TABLET BY MOUTH EVERY DAY Discontinued lisinopril 20 mg tablet 20 mg PO HS Patient Comments: TAKE 1 TABLET BY MOUTH EVERY DAY Discharge Instructions Instructions: Hyperkalemia Additional Instructions: Do not take lisinopril Make sure you are constantly hydrating while you work. If you aren't feeling well you should come in to your PCP or express care and have labs done. Activity:: Activity as Tolerated Equipment/Supplies:: No Equipment Needed Diet:: avoid excess potassium Discharge Orders Discharge Orders: Discharge Order (Routine); Ordered 12/17/23 Ordered By: Connor Holliday Other Ambulatory Orders: Basic Metabolic Panel (Routine) Timeframe: 1 Week Facility: [facility] - Location: Laboratory Outpatient - [facility] Ordered By: Connor Holliday DS: Summary Time Spent with Patient providing and/or coordinating discharge services: Greater than 30 minutes Status at Discharge Functional status at discharge: independent ambulation Overall status at discharge: patient is back to baseline Mental Status: mental status grossly normal Speech and Movement: speech and movement normal Mood: congruent mood Affect: normal affect Quality:SDOH Health Related Social Needs: No Data to Display Exam Narrative Exam Narrative: Well-developed, no acute distress, standing up cleaning himself normal conjunctiva, no icterus, MMM RRR no murmur Unlabored respiratory effort,lungs CTAB Nondistended abdomen soft nontender. Extremities w/o deformity, no cyanosis, no edema Psych Mental Status: mental status grossly normal Speech and Movement: speech and movement normal Mood: congruent mood Affect: normal affect DS: Data Vitals/I&O Vitals and I&O: Vital Signs Temperature 37.1 C 12/17/23 07:54 Temperature Source Tympanic 12/17/23 07:54 Pulse 57 L 12/17/23 07:54 Pulse Rhythm Regular 12/17/23 00:00 Pulse 63 12/16/23 08:30 Respiratory Rate 16 12/17/23 07:54 Respiratory Effort Normal, Non-Labored 12/17/23 00:00 Respiratory Depth Normal 12/17/23 00:00 Respiratory Pattern Normal 12/17/23 00:00 Blood Pressure 110/68 12/17/23 07:54 Blood Pressure Mean 82 12/16/23 08:30 Blood Pressure Position Sitting 12/14/23 14:12 Pulse Oximetry 96 12/17/23 07:54 Oxygen Delivery Method Room Air 12/17/23 07:54 Oxygen Flow Rate 0 12/17/23 07:54 Pain Level 0 12/17/23 07:54 Comment cuff changed to navy blue cuff from light blue cuff 12/15/23 00:38 Comment navy blue cuff 12/15/23 00:08 Intake & Output 12/16/23 12/16/23 12/17/23 11:59 23:59 11:59 Intake Total 2000 / 3000 1000 / 3000 Output Total 1100 / 1900 800 / 1900 400 / 400 Balance 900 / 1100 200 / 1100 -400 / -400 Weight 84.1 kg Intake: IV 2000 / 3000 1000 / 3000 Output: Urine 1100 / 1900 800 / 1900 400 / 400 Other: Urine Color Straw Yellow Urine Appearance Clear Clear Clear Comment shrutie coyle discontinued Patient states he has been up 2-3 times to bathroom during the night and voided in toilet Voiding Methods Indwelling Catheter Data Completed and Pending Labs on day of discharge: Labs from last 24 hours 12/17/23 12/16/23 06:26 14:25 Sodium 139 139 Potassium 4.7 5.5 H Chloride 105 105 Carbon Dioxide 30.2 27.3 Anion Gap 3.8 6.7 BUN 26 H 41 H Creatinine 1.0 1.3 Est GFR (CKD-EPI 2020) 83.52 60.96 Glucose 109 H 110 H Calcium 8.4 L 8.6 PFSH All Active Problems (Updated 12/15/23 @ 09:31 by Connor Holliday) On deep vein thrombosis (DVT) prophylaxis (Acute) Acute renal injury due to hypovolemia (Acute) Hypotension (Acute) Hyponatremia (Acute) Hyperkalemia (Acute) Kidney failure, acute (Acute) Stage 3 acute kidney injury (Acute) Traumatic tear of right rotator cuff (Acute 05/21/21) Medical History Hx of fracture of leg left HTN (hypertension) Rupture of right proximal biceps tendon Surgical History History of arthroscopy of right shoulder (06/28/21) SCR Hx of colonoscopy Family History (Updated 12/14/23 @ 19:33 by Maria Del Rosario Mckenna APRN) Mother Osteoporosis Social History Smoking/Tobacco Use Status: Never Smoking risk assessment performed?: Yes Alcohol Intake: current Alcohol Intake frequency: holidays/special occasions only Alcohol type: wine Drug use: Never Substance use type: does not use Housing: house Current gender identity: male Do you feel safe at home: Yes Do you feel safe in your relationship?: Yes Time Spent with Patient Time Spent with Patient: <45 minutes Time was spent: preparing to see the patient(eg.review tests), obtaining and/or reviewing separately otained hiistory, ordering medications,tests, procedures, referring, communicating with other health long term care phlebotomist, indepentently interpreting results, counseling the patient and care coordination
--- NOTE | 2023-12-17 11:37 | CHAPLAIN ---
Luan was getting ready to leave when I visited. He was waiting for his discharge papers. Luan was pleasant and easily engaged in a conversation. 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 He told me that Fr. Angie Horn, who helped to establish the welding specialist program at [facility], officiated at Luan's wedding. He talked about what a good person Fr. Adams was. Luan said he doesn't have to got back to work until Friday so he has a few more days to recuperate. He said he's received great care here.
--- NOTE | 2023-12-17 11:50 | PDOC.CMDIS ---
Date of service: 12/17/23 Time of Service: 11:50 LACE Index Scoring Tool Questions: Length of Stay (in days): 3 Was the patient admitted via the E.D.?: Yes Comorbidities: Liver or Renal Disease E.D. Visits: 1 Answers: Total Score: 12 Risk of Readmission: High Risk Care Management Discharge Plan Reason for Hospitalization: renal failure Discharge Plan: Luan will be discharged home with no new services. He will follow up with his community providers and plan of care and transport with family. Patient/Family Education Needs: Review discharge instructions, discuss Ask Me Three SDDE Health Related Social Needs: No Data to Display
== END 2023-12-17 11:00 | disposition home or self-care (01) | DRG 315 ==
LOC: ER 16:51 → ICU 18:04 → MS 12-16 13:57
PROVIDERS: Nurse Practitioner Acute Care; Admitting Provider Family Medicine; Emergency Provider Emergency Medicine; PCP Physician Assistant Medical; Visit Provider Family Medicine
DX: I95.89 Other hypotension (principal); E87.1 Hypo-osmolality and hyponatremia; N17.9 Acute kidney failure, unspecified; E86.0 Dehydration; E87.5 Hyperkalemia; I10 Essential (primary) hypertension; Z79.899 Other long term (current) drug therapy
CPT/HCPCS: 00123; 36415; 76770; 80048; 80053; 82550; 93005; 96360; 96361; 99291; 81003; 83735; 84132; 84300; 85025; 93010; 99223; 99232; 99238

== ENCOUNTER 2023-12-23 11:33 | Outpatient (REF) | payer MEDICARE, SELFPAY ==
[2023-12-23 15:32] LABS: ALT 29 U/L (16-63); AST 13 U/L (15-37); Albumin 3.6 g/dL (3.4-5.0); Alkaline Phosphatase 79 U/L (46-116); Anion Gap 5.5 mmol/L (3-11); BUN 14 mg/dL (7-18); Bilirubin, Total 0.27 mg/dL (0.2-1.0); CO2 29.5 mmol/L (21.0-32.0); CREATININE 0.9 mg/dL (0.70-1.30); Calcium 8.9 mg/dL (8.5-10.1); Chloride 105 mmol/L (98-107); Estimated GFR 94.78 (mL/min/1.73m2); Glucose 104 mg/dL (74-106); Magnesium 2.1 mg/dL (1.8-2.4); Potassium 4.3 mmol/L (3.5-5.1); Sodium 140 mmol/L (136-145); Total Protein 6.4 g/dL (6.4-8.2)
== END 2023-12-23 11:34 | disposition home or self-care (01) ==
LOC: NCHCN 11:33
PROVIDERS: PCP Physician Assistant Medical; Visit Provider Physician Assistant Medical
DX: N17.9 Acute kidney failure, unspecified (principal); E87.5 Hyperkalemia
CPT/HCPCS: 80053; 83735

== ENCOUNTER 2024-03-22 09:15 | Outpatient (REF) | payer MEDICARE, SELFPAY ==
--- OUTSIDE RECORDS SUMMARY | 2024-03-22 09:16 | XMS_ITS | Clinical Summary ---
Author Organization [facility] Address [address] [place] [address] Care Team Providers Care Real Estate Administrator Name Role Phone Josep Ridley PA-C Primary Care Provider + Social History Tobacco Use Types Packs/Day Years Used Date Smoking Tobacco: Never Assessed Sex and Gender Information Value Date Recorded Sex Assigned at Not on file Gender Identity Not on file Sexual Orientation Not on file Plan of Treatment Health Maintenance Due Date Last Done Comments RSV Immunization ( o r 60+ Years) (1 - 1-dose 60+ series) 2018 COVID-19 Vaccine (2022-24 season) 2023 Fall Risk Screening 2023 Hepatitis C Screen Completed 01/05/2021 Procedures Procedure Name Priority Date/Time Associated Diagnosis Comments HEPATITIS C AB W REFLEX TO HCV RNA BY PCR Routine 01/05/2021 8:30 EDT from Last 3 Months or Most Recently Relevant to Health Maintenance Results * HEPATITIS C AB W REFLEX TO HCV RNA BY PCR (01/05/2021 8:30 EDT) Hep C Antibody Negative Negative 01/08/2021 10:59 EDT [facility] Blood VENOUS BLOOD / Unknown 01/05/2021 8:30 EDT 01/05/2021 20:54 EDT Provider Outr Resulting Lab CHEMISTRY & BLOOD GAS ORDERABLES [facility] [address] [place] [address] from Last 3 Months or Most Recently Relevant to Health Maintenance Care Teams Real Estate Administrator Relationship Specialty Start Date End Date Josep Ridley PA-C [address] [place] [phone] [facility] - General 09/13/13
--- OUTSIDE RECORDS SUMMARY | 2024-03-22 09:16 | XMS_ITS | Encounter Summary ---
Author Organization [facility] Address [address] [place] [address] Care Team Providers Care Campus Recruiting Internship Name Role Phone Josep Ridley PA-C Primary Care Provider + Encounter Details Date Type Department Care Team (Late st Contact Info) Description 01/31/2023 Lab Requisition [facility] Pathology & Laboratory Medicine - [facility] [address], [place] [id number] Outr Resulting Lab, Provider Social History Tobacco Use Types Packs/Day Years Used Date Smoking Tobacco: Never Assessed Sex and Gender Information Value Date Recorded Sex Assigned at Not on file Gender Identity Not on file Sexual Orientation Not on file documented as of this encounter Plan of Treatment Not on file documented as of this encounter Procedures Procedure Name Priority Date/Time Associated Diagnosis Comments PSA TOTAL, DIAGNOSTIC Routine 01/31/2023 8:10 EDT documented in this encounter Results * PSA TOTAL, DIAGNOSTIC (01/31/2023 8:10 EDT) PSA 1.6 <=4.5 ng/mL 01/31/2023 22:[address] [facility] Blood VENOUS BLOOD / Unknown 01/31/2023 8:10 EDT 01/31/2023 22:[address] [facility] - 01/31/2023 22:51 EDT NOTE: Serum PSA concentration should not be interpreted as absolute evidence for the presence or absence of malignant disease. Assayed on Siemens ADVIA Emergency [employer] XPT using chemiluminescent technology.??Values obtained by using different assay methods cannot be used interchangeably. Provider Outr Resulting Lab CHEMISTRY & BLOOD GAS ORDERABLES [facility] [address] [place] [address] documented in this encounter Visit Diagnoses Not on filedocumented in this encounter Care Teams Campus Recruiting Internship Relationship Specialty Start Date End Date Josep Ridley PA-C [address] [place] [phone] PCP - General 09/13/13 documented as of this encounter
--- OUTSIDE RECORDS SUMMARY | 2024-03-22 09:16 | XMS_ITS | Encounter Summary ---
Author Organization [facility] Address [address] [place] [address] Care Team Providers Care C 40A Crew Chief Name Role Phone Josep Ridley PA-C Primary Care Provider + Encounter Details Date Type Department Care Team (Late st Contact Info) Description 01/05/2021 Lab Requisition [facility] Pathology & Laboratory Medicine - [facility] [address] [place], [place] [address] Outr Resulting Lab, Provider Social History Tobacco [...] RNA BY PCR Routine 01/05/2021 8:30 EDT documented in this encounter Results * HEPATITIS C AB W REFLEX TO HCV RNA BY PCR (01/05/2021 8:30 EDT) Hep C Antibody Negative Negative 01/08/2021 10:59 EDT [facility] Blood VENOUS BLOOD / Unknown 01/05/2021 8:30 EDT 01/05/2021 20:54 EDT Provider Outr Resulting Lab CHEMISTRY & BLOOD GAS ORDERABLES [facility] [address] [place] [address] documented in this encounter Visit Diagnoses Not on filedocumented in this encounter Additional Health Concerns Infection Onset Date Last Indicated Resolved Time COVID-19 11/13/2021 11/13/2021 12/03/2021 22:1 5 EDT documented as of this encounter Care Teams C 40A Crew Chief Relationship Specialty Start Date End Date Josep Ridley PA-C [address] [place] [phone] PCP - General 09/13/13 documented as of this encounter
--- OUTSIDE RECORDS SUMMARY | 2024-03-22 09:16 | XMS_ITS | Encounter Summary ---
Author Organization [facility] Address [address] [place] [address] Care Team Providers Care Engineering Aide Name Role Phone Unavailable Primary Care Provider Unavailabl e Encounter Details Date Type Department Care Team (Latest Contact Info) Description 09/10/2013 15:22 EDT - 09/10/2013 23:59 EDT Hospital Encounter [address] [address] Unknown, Provider, Discharge Disposition: Home or Self Care Social History Tobacco Use Types Packs/Day Years Used Date Smoking Tobacco: Never Assessed Sex and Gender Information Value Date Recorded Sex Assigned at Not on file Gender Identity Not on file Sexual Orientation Not on file documented as of this encounter Discharge Disposition Disposition Code Departure Means Destination Home or Self [facility] documented in this encounter Plan of Treatment Not on file documented as of this encounter Visit Diagnoses Not on filedocumented in this encounter
--- OUTSIDE RECORDS SUMMARY | 2024-03-22 09:16 | XMS_ITS | Encounter Summary ---
Author Organization [facility] Address [address] [place] [address] Care Team Providers Care Petrographer Name Role Phone Unknown, Provider Primary Care Provider [phone] Encounter Details Date Type Department Care Team (Late st Contact Info) Description 09/10/2013 Results Only [facility] [phone] Sarah Beth Bradley, DO [address] [place] [address] Social History Tobacco Use Types Packs/Day Years Used Date Smoking Tobacco: Never Assessed Sex and Gender Information Value Date Recorded Sex Assigned at Not on file Gender Identity Not on file Sexual Orientation Not on file documented as of this encounter Plan of Treatment Not on file documented as of this encounter Procedures Procedure Name Priority Date/Time Associated Diagnosis Comments SURGICAL PATHOLOGY Routine 09/10/2013 8:43 EDT documented in this encounter Results * SURGICAL PATHOLOGY (09/10/2013 8:43 EDT) Pathology Report: SURGICAL PATHOLOGY REPORT Reports generated via electronic interface contain original data; however they are lacking the format of the original report. Caution should be taken when reading/interpreti ng unformatted reports. Name: ? MILAD CHA ? Accession #: ? [id number] ? : ? 1960 (Age: 53) ??M ? Collect Date: ? 09/10/2013 ? Location: ? [facility] ? Receive Date: ? 09/10/2013 ? Provider: SARAH BETH BRADLEY DO Copy to: AYESHA ARCHER ? Final Pathologic Diagnosis: COLON, RECTOSIGMOID, POLYP, BIOPSY: - ??Tubular adenoma (1 piece); no high grade dysplasia. Document reviewed and electronically signed by: Landy Ramirez MD Report ??Date: 09/14/2013 09:16 By the signature above, the attending physician certifies that he/she has personally conducted a gross and/or microscopic examination of the described specimens and rendered or confirmed the above diagnosis. Specimen(s) Received: Rectosigmoid polyp Clinical History: Screening; clinical diagnosis code: V76.51 Gross Description: ? Received in formalin labelled with proper patient identification (initials D, R) and rectosigmoid polyp is a single pink-banda polypoid tissue (0.6 x 0.5 x 0.2 cm). The margin is inked blue. The specimen is trisected and entirely submitted in cassette 1. Clarisa Pérez 09/13/2013 08:04 AM End of Report [facility] 09/10/2013 8:43 EDT 09/10/2013 8:43 EDT Sarah Beth Bradley DO PATHOLOGY ORDERABLES [facility] [address] [place] [address] documented in this encounter Visit Diagnoses Not on filedocumented in this encounter Care Teams Petrographer Relationship Specialty Start Date End Date Unknown, Provider, PCP - General 09/11/13 09/12/13 documented as of this encounter
--- OUTSIDE RECORDS SUMMARY | 2024-03-22 09:16 | XMS_ITS | Referral Summary ---
Author Organization [facility] Address [address] [place] [address] Care Team Providers Care Digital Camera Technician Name Role Phone Josep Ridley PA-C Primary Care Provider + Social History Tobacco Use Types Packs/Day Years Used Date Smoking Tobacco: Never Assessed Sex and Gender Information Value Date Recorded Sex Assigned at Not on file Gender Identity Not on file Sexual Orientation Not on file Plan of Treatment Not on file Procedures Procedure Name Priority Date/Time Associated Diagnosis Comments HEPATITIS C AB W REFLEX TO HCV RNA BY PCR Routine 01/05/2021 8:30 EDT from Last 3 Months or Most Recently Relevant to Health Maintenance Results * HEPATITIS C AB W REFLEX TO HCV RNA BY PCR (01/05/2021 8:30 EDT) Hep C Antibody Negative Negative 01/08/2021 10:59 EDT [facility] Blood VENOUS BLOOD / Unknown 01/05/2021 8:30 EDT 01/05/2021 20:54 EDT Provider Outr Resulting Lab CHEMISTRY & BLOOD GAS ORDERABLES [facility] [address] [place] [address] from Last 3 Months or Most Recently Relevant to Health Maintenance Care Teams Digital Camera Technician Relationship Specialty Start Date End Date Josep Ridley PA-C [address] [place] [address] PCP - General 09/13/13
--- OUTSIDE RECORDS SUMMARY | 2024-03-22 09:16 | XMS_ITS | Continuity of Care Document ---
Author Organization [facility] Address [address] [place] [address] Care Team Providers Care Engraving Patternmaker Name Role Phone AYESHA MONTANA Primary Care Provider Assessment No assessment recorded. Plan of Treatment Reminders Order Date Submit Date Provider Last Modified By Organization Details Last Modified Time Details Appointments Follow Up 30 2023 08:30A M AYESHA MONTANA Not available Not available Not available Lab None recorded. Referral None recorded. Procedures None recorded. Surgeries None recorded. Imaging None recorded. Medication Orders amlodipin e 5 mg tablet 2023 09 024 [id number], [address] [place] [address], [phone], 02/03/2024 08:06:51 Patient TargetsNo targets recorded. Patient InstructionsNo instructions recorded. Reason for Referral None Reported. Results Created Date Observation Date Name Description Value Unit Range Abnormal Flag Note LastModifiedBy Organization Detail LastModifiedTime 02/09/20 24 06/06/2021 imagi ng/di agnos tic resul t No observ ation record ed. [email or web address] Not Available 02/08 01:07:10 02/09/20 24 05/10/2021 imagi ng/di agnos tic resul t No observ ation record ed. [email or web address] Not Available 02/08 01:07:41 Result Notes None recorded. Problems Name Problem SNOMED Code Status Onset Date Resolution Date Notes Provider Name and Address Organization Details Recorded Time Benign neoplasm of colon 87169549 Active 201302/13/20 19 - Comments only - Ayesha Montana PA-C - Patient agrees to contact [facility] to schedule colonsoc opy consult Problem Code: D12.6; Problem Code Type: ICD-10; Not Available [facility] 3 04:35:00 Adult health examinat ion Active 201601/03/20 20 - Comments only - Ayesha Montana PA-C - UTD with recommen [facility] health screenin gs. Problem Code: Z00.00; Problem Code Type: ICD-10; Not Available [facility] 3 04:35:00 Elevated blood-pr essure reading without diagnosi s of hyperten dru 152918995 Completed 201807/07/2018 06/23/19 19 - Comments only - Ayesha Montana PA-C - Today's BP elevated . Will ask that patient return for BP recheck via [facility] in 2 weeks as monitori ng. Problem Code: R03.0; Problem Code Type: ICD-10; Not Available [facility] 3 04:35:00 [facility] hyperten dru 58240536 Active 201807/31/19 23 - Comments only - Ayesha Montana PA-C - Today's BP suggests fair control on LISINOPR [place] 20mg QD. Problem Code: I10; Problem Code Type: ICD-10; Not Available [facility] 3 04:35:00 Prediabe tigist 521246522 Active 201807/31/19 23 - Comments only - Ayesha Montana PA-C - Last A1C stable. Will continue to monitor Problem Code: R73.03; Problem Code Type: ICD-10; Not Available [facility] 3 04:35:00 Disorder of skin and/or subcutan eous tissue 07065244 Completed 201901/17/2020 01/03/20 20 - Comments only - Ayesha Montana PA-C - Treated with cryother apy in-offic e today. Will consider for more definati ve excision al biopsy via ENT/plas tic surgery if recurren t Problem Code: L98.9; Problem Code Type: ICD-10; Not Available [facility] 3 04:35:00 Actinic keratosi s Completed 202007/24/2020 07/10/19 21 - Comments only - Ayesha Montana PA-C - Treated with multiple rounds of cryother apy in-offic e today. Will consider for more definati ve excision al biopsy via ENT/plas tic surgery if recurren t Problem Code: L57.0; Problem Code Type: ICD-10; Not Available [facility] 3 04:35:00 Actinic keratosi s Active 202105/28/19 23 - Comments only - Ayesha Montana PA-C - After cleansin g the area with alcohol wipe, lesion was treated with multiple rounds of cryother apy using liquid nitrogen . Patient tolerate d this well. At conclusi on, bandage dressing was applied. Will consider dermatol ogy refer if lesion does not fully resolve with this interven tion. Problem Code: L57.0; Problem Code Type: ICD-10; Not Available [facility] 3 04:35:01 Exposure to communic able disease Active 2021 Problem Code: Z20.828; Problem Code Type: ICD-10; Not Available [facility] 3 04:35:01 Hyperlip idemia 58749561 Completed 202208/13/2022 07/31/19 23 - Comments only - Ayesha Montana PA-C - Repeat lipid profile and CMP collecte d today as marty shipley on LIPITOR 10mg QHS Problem Code: E78.5; Problem Code Type: ICD-10; Not Available [facility] 3 04:35:01 Pain of right shoulder joint [id number] 452706 Completed 202010/28/2021 Problem Code: M25.511; Problem Code Type: ICD-10; Not Available [facility] 3 04:35:04 Impaired fasting glycemia 896492306 Completed 201802/19/2023 01/03/20 20 - Comments only - Ayesha Montana PA-C - Last HBA1C OK. Will consider to repeat with next set of labs as monitori ng. Problem Code: R73.01; Problem Code Type: ICD-10; Not Available [facility] 3 04:35:05 Acute upper respirat ory infectio n 17888448 Completed 201608/12/2016 Problem Code: J06.9; Problem Code Type: ICD-10; Not Available [facility] 3 04:35:05 Tubular adenoma 874091500 Completed 201302/19/2023 Not Available [facility] 3 04:35:07 Hyperlip idemia 65721978 Active 202202/01/20 23 - Comments only - Ayesha Montana PA-C - - HYPERLIP IDEMIA Maintain ed on LIPITOR 10mg QHS Problem Code: E78.5; Problem Code Type: ICD-10; Not Available [facility] 4 05:38:17 Problem Notes None recorded. Medical Equipment None Reported. Allergies No known drug allergies Medications Name Sig Start Date Stop Date Status Note LastModified by Organization Details LastModified Time atorvastati n 10 mg tablet TAKE 1 TABLET BY MOUTH EVERY DAY active Not Available Not Available No t Available lisinopril 20 mg tablet TAKE 1 TABLET BY MOUTH EVERY DAY 12/22 completed Not Available Not Available Not Available amlodipine 5 mg tablet TAKE 1 TABLET BY MOUTH EVERY DAY active Not Available Not Available No t Available sodium polystyrene sulfonate oral powder MIX 15G (ONE CONTAINER ) DIRECTED AND DRINK BY MOUTH TWO TIMES A DAY FOR 2 DAYS 12/22 completed Not Available Not Available Not Available selenium sulfide 2.3 % shampoo 5 ml as directed twice a week 2.5 % STRENGTH APPLY 5-10ML TO REPLACE REGULAR SHAMPOO TWICE WEEKLY 02/02 completed Not Available Not Available Not Available Flonase Allergy Relief 50 mcg/actuati on nasal spray,suspe nsion 2 sprays each nostril daily 08/12 completed Not Available Not Available Not Available Vitals Date Recorded Body height Body mass index (BMI) Body weight Heart rate Systolic blood pressure Diastolic blood pressure Provider Name and Address Organization Details Last Updated DateTime 4 180.975 cm 28.3 kg/m2 83564.8 4 g 60 /min 144 mm[Hg] 90 mm[Hg] JASWANT JOSEPH LPN [facility] 07:57:23 Social History None recorded. Functional Status None recorded. Mental Status None recorded. Family History Relationship Description Onset Age of this Age Resolved Age Notes LastModified by Organization Details LastModified Time Maternal Grandfather Family history of premature coronary heart disease [email or web address] Not available 2022 03:54:52 Maternal Grandfather Family history of Arthritis [email or web address] Not available 2022 03:54:53 Maternal Grandfather No family history of respiratory disease [email or web address] Not available 2022 03:54:53 Unspecified Relation Family history of Hypertension Relati ve: 'Uncle '; Not available 04/04/2023 03:54:53 Unspecified Relation Family history of psychotic illness SUICID E Relati ve: 'Uncle '; Not available 04/04/2023 03:54:53 Father Family history of stroke [email or web address] Not available 2022 03:54:53 Mother Family history of Arthritis [email or web address] Not available 2022 03:54:53 Notes:*Problem: Mother: Dece ased - Arthritis, dementia Father: - BPH Sisters: None Brothers x 2: L&W without ongoing medical issues Children: None Medical History No medical history recorded. Immunizations Vaccine Type Date Status Provider Name and Address Organization Details Recorded Time Influenza, high-dose, trivalent, PF 02/03/[address], [place], [address], [facility] 02/03/2024 10:00:06 Td (adult), 5 Lf tetanus toxoid, preservative free, adsorbed 03/22/[address], [place], [address], [facility] 03/22/2024 09:03:54 Tdap 05/18/2013 completed [facility] Available [facility] 05:46:53 Influenza, split virus, quadrivalent, PF 10/26/2021 completed Not Available [facility] 04/04/2023 05:46:54 Influenza, split virus, quadrivalent, PF 02/12/2019 completed Not Available [facility] 04/04/2023 05:46:54 Influenza, split virus, quadrivalent, PF 03/17/2020 completed Not Available [facility] 04/04/2023 05:46:54 Influenza, split virus, quadrivalent, preservative 06/03/2018 completed Not Available [facility] 04/04/2023 05:46:55 zoster recombinant 02/12/[address] [facility] 04/04/2023 05:46:55 zoster recombinant 04/16/[address] [facility] 04/04/2023 05:46:55 COVID-19, mRNA, LNP-S, PF, 100 mcg/0.5mL dose or 50 mcg/0.25mL dose 09/10/2020 completed Not Available [facility] 04/04/20 05:46:55 COVID-19, mRNA, LNP-S, PF, 100 mcg/0.5mL dose or 50 mcg/0.25mL dose 10/08/2020 completed Not Available [facility] 04/04/20 05:46:55 Past Encounters Encounter ID Performer Location Encounter Start Date Encounter Closed Date Diagnosis/Indication Diagnosis SNOMED-CT Code Diagnosis ICD10 Code [id number] AYESHA MONTANA PA-C [address] [phone] 02/03/2024 07:47:50 02/03/2024 08:42:11 Essential hypertension 41668685 I10 Hyperlipidemia 71682695 E78.5 Active or passive immunization 241136973 Z23 Health Concerns Section Related Observation LastModified by Organization Detai ls LastModified Time None Recorded Concern Status LastModified by Organization Details LastModified Time None Recorded Payers Encounter Date Sequence Insurance Name Policy Number Policy Guthrie Covered Member ID Guthrie Member ID Guarantor Name 02/03/2024 1 [facility] (MEDICARE REPLACEMENT/A DVANTAGE - PPO) [id number] Luan Cha [id number] Luan Cha Notes Date Note Type Note Provider Name and Address Organization Details Recorded Time 02/03/2024 text/html HPI Notes: 63y/o male presenting for 1m f/u HTN, h/o SHIRLEY, and HPL. 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 Ultimately, admitted to hospitalist service for management of stage 3 SIHRLEY, hyponatremia, hypotension, and hyperkalemia. D/C'd from LISINOPRIL and d/c to home after stabilization on SODIUM POLYSYTRENE SULFONATE 15g BID x 2d on 12/17/23. Seen in f/u here at [facility] 12/23/23, at which he reported near full recovery. On presentation today, Luan indicates he is feeling well. No complaints. AYESHA MONTANA PA-C [address], [place], [address], [facility]. 02/03/2024 10:00:22
--- OUTSIDE RECORDS SUMMARY | 2024-03-22 09:16 | XMS_ITS | Continuity of Care Document ---
Author Organization [facility] Address [address] [place] [address] Care Team Providers Care Coordinator Cardiopulmonary Services Name Role Phone JOSEP MONTANA Primary Care Provider Assessment No assessment recorded. Plan of Treatment Reminders Order Date Submit Date Provider Last Modified By Organization Details Last Modified Time Details Appointments Follow Up 30 2023 08:30A M JOSEP MONTANA Not available Not available Not available Lab CMP, serum or plasma 2023 024 LOC [facility] (Registration ), [address] [place] [address] [place], [address], 12/23/2023 15:59:26 magnesiu m, serum or plasma 2023 024 [email or web address] [facility] (Registration ), [address] [place] [address] [place], [address], 12/24/2023 09:31:25 Referral None recorded . Procedures None recorded . Surgeries None recorded . Imaging None recorded . Medication Orders None recorded . Patient TargetsNo targets recorded. Patient InstructionsNo instructions recorded. Reason for Referral None Reported. Results Created Date Observation Date Name Description Value Unit Range Abnormal Flag Note LastModifiedBy Organization Detail LastModifiedTime 12/15/19 24 12/15/2023 ultra sound imagi ng repor t Patien t Name: Luan Cha Unit #: [id number] Loc: ICU Orderi ng Provid er: Maria Del Rosario Mckenna APRN t #: [id number] Status : ADM IN Primar y Care Provid er: Yael huizar,Kacie ARCHER Date of Exa m: Sex: M Admiss ion Date: : 1959 Age: 63 Exam(s ) US RENAL EXAM: US RENAL CLINIC AL HISTOR Y: Acute kidney Failur e. TECHNI QUE: Mccoy scale, color and spectr al Dopple r were used. COMPAR MITCH: No exams were availa ble for compar mitch FINDIN GS: Renal size in cm: Right: 10.7. Left: 11.1. Echoge nicity : Normal . Hydron ephros is: No. Cyst or mass: No. Nephro lithia sis: No. Other findin gs: None. Bladde r:Norm al. There is a Power cathet er in place. Ureter al jets: Right: Visual ized and unrema rkable . Left: Visual ized and unrema rkable . Prevoi d vol:60 5 cc Postvo id vol:0 cc Prosta te: 46 cc Renal color flow: Symmet sean and within normal limits . IMPRES TRISTIN: 1. Unrema rkable kidney s. No eviden ce of nephro lithia sis or hydron ephros is. 2. Enlarg ed prosta te gland. DATA REPOSI TORY: Haresh campos By: Maria Del Rosario Mckenna APRN CC: ------ ------ ------ ------ ------ ------ ------ ------ ------ ------ ------ ------ - Dictat ed By: Florentin Vargas M.D. 0957 [id number] Transc ribed By: Florentin Vargas 0957 This is privil eged, confid ential inform ation intend ed only for the provid er named. Any use or distri bution by any person other than this provid er is strict ly prohib ited. If you receiv e this report in error, please notify us immedi ately at and return the origin al report to us at the addres s above. Thank- you. [email or web address] [facility] [address] [place], [address] 12/16/2023 10:41:51 02/09/20 24 06/06/2021 imagi ng/di agnos tic [...] Details Recorded Time Benign neoplasm of colon 74675233 Active 201302/13/20 19 - Comments only - Josep Montana PA-C - Patient agrees to contact [facility] to schedule colonsoc opy consult Problem Code: D12.6; Problem Code Type: ICD-10; Not Available [facility] 3 04:35:00 Adult health examinat ion Active 201601/03/20 20 - Comments only - Josep Montana PA-C - UTD with recommen [facility] health screenin gs. Problem Code: Z00.00; Problem Code Type: ICD-10; Not Available [facility] 3 04:35:00 Elevated blood-pr essure reading without diagnosi s of hyperten tristin 033452933 Completed 201807/07/2018 06/23/19 19 - Comments only - Josep Montana PA-C - Today's BP elevated . Will ask that patient return for BP recheck via [facility] in 2 weeks as riaz shipley. Problem Code: R03.0; Problem Code Type: ICD-10; Not Available [facility] 3 04:35:00 [facility] hyperten tristin 51417746 Active 201807/31/19 23 - Comments only - Josep Montana PA-C - Today's BP suggests fair control on LISINOPR [place] 20mg QD. Problem Code: I10; Problem Code Type: ICD-10; Not Available [facility] 3 04:35:00 Prediabe tigist 664604099 Active 201807/31/19 23 - Comments only - Josep Montana PA-C - Last A1C stable. Will continue to monitor Problem Code: R73.03; Problem Code Type: ICD-10; Not Available [facility] 3 04:35:00 Disorder of skin and/or subcutan eous tissue 72635173 Completed 201901/17/2020 01/03/20 20 - Comments only - Josep Montana PA-C - Treated with cryother apy in-offic e today. Will consider for more definati ve excision al biopsy via ENT/plas tic surgery if recurren t Problem Code: L98.9; Problem Code Type: ICD-10; Not Available [facility] 3 04:35:00 Actinic keratosi s Completed 202007/24/2020 07/10/19 21 - Comments only - Josep Montana PA-C - Treated with multiple rounds of cryother apy in-offic e today. Will consider for more definati ve excision al biopsy via ENT/plas tic surgery if recurren t Problem Code: L57.0; Problem Code Type: ICD-10; Not Available [facility] 3 04:35:00 Actinic keratosi s Active 202105/28/19 23 - Comments only - Josep Montana PA-C - After cleansin g the area with alcohol wipe, lesion was treated with multiple rounds of cryother apy using liquid nitrogen . Patient tolerate d this well. At conclusi on, bandage dressing was applied. Will consider dermatol ogy refer if lesion does not fully resolve with this interven tion. Problem Code: L57.0; Problem Code Type: ICD-10; Not Available [facility] 3 04:35:01 Exposure to communic able disease Active 2021 Problem Code: Z20.828; Problem Code Type: ICD-10; Not Available [facility] 3 04:35:01 Hyperlip idemia 61023855 Completed 202208/13/2022 07/31/19 23 - Comments only - Josep Montana PA-C - Repeat lipid profile and CMP collecte d today as montiori ng on LIPITOR 10mg QHS Problem Code: E78.5; Problem Code Type: ICD-10; Not Available [facility] 3 04:35:01 Pain of right shoulder joint [id number] 404073 Completed 202010/28/2021 Problem Code: M25.511; Problem Code Type: ICD-10; Not Available [facility] 3 04:35:04 Impaired fasting glycemia 507669172 Completed 201802/19/2023 01/03/20 20 - Comments only - Josep Montana PA-C - Last HBA1C OK. Will consider to repeat with next set of labs as monitori ng. Problem Code: R73.01; Problem Code Type: ICD-10; Not Available [facility] 3 04:35:05 Acute upper respirat ory infectio n 97297744 Completed 201608/12/2016 Problem Code: J06.9; Problem Code Type: ICD-10; Not Available [facility] 3 04:35:05 Tubular adenoma 921161077 Completed 201302/19/2023 Not Available [facility] 3 04:35:07 Hyperlip idemia 42149859 Active 202202/01/20 23 - Comments only - Josep Montana PA-C - - HYPERLIP IDEMIA Maintain ed on LIPITOR 10mg QHS Problem Code: E78.5; Problem Code Type: ICD-10; Not Available [facility] 4 05:38:17 Problem Notes None recorded. Medical [...] height Body mass index (BMI) Body weight Body temperature Oxygen saturation Oxygen saturation in Arterial blood by Pulse oximetry Heart rate Systolic blood pressure Diastolic blood pressure Provider Name and Address Organization Details Last Updated DateTime 180.975 cm 27.5 kg/m2 73179.6 9 g 97.3 [degF] 98 % 98 % 65 /min 130 mm[Hg] 78 mm[Hg] JASWANT JOSEPH LPN [place] - [facility] 09:50:56 Social History None recorded. Functional Status None recorded. Mental Status None recorded. Family History Relationship Description Onset Age of this Age Resolved Age Notes LastModified by Organization Details LastModified Time Maternal Grandfather Family history of premature coronary heart disease [email or web address] Not available 2022 03:54:52 Maternal Grandfather Family [...] Time Influenza, high-dose, trivalent, PF 02/03/2024 completed JOSEP MONTANA PA-C [address], [place], [address], [facility] 02/03/2024 10:00:06 Td (adult), 5 Lf tetanus toxoid, preservative free, adsorbed 03/22/2024 completed JOSEP MONTANA PA-C [address], [place], [address], [facility] 03/22/2024 09:03:54 Tdap 05/18/2013 completed Not Available [facility] 05:46:53 Influenza, split virus, quadrivalent, PF 10/26/2021 completed Not Available [facility] 04/04/2023 05:46:54 Influenza, split virus, quadrivalent, PF 02/12/2019 completed Not Available [facility] 04/04/2023 05:46:54 Influenza, split virus, quadrivalent, PF 03/17/2020 completed Not Available [facility] 04/04/2023 05:46:54 Influenza, split virus, quadrivalent, preservative 06/03/2018 completed Not Available [facility] 04/04/2023 05:46:55 zoster recombinant 02/12/2019 completed Not Available [facility] 04/04/2023 05:46:55 zoster recombinant 04/16/2019 completed Not Available [facility] 04/04/2023 05:46:55 COVID-19, mRNA, LNP-S, PF, 100 mcg/0.5mL dose or 50 mcg/0.25mL dose 09/10/2020 completed Not Available [facility] 04/04/20 05:46:55 COVID-19, mRNA, LNP-S, PF, 100 mcg/0.5mL dose or 50 mcg/0.25mL dose 10/08/2020 completed Not Available [facility] 04/04/20 05:46:55 Past Encounters Encounter ID Performer Location Encounter Start Date Encounter Closed Date Diagnosis/Indication Diagnosis SNOMED-CT Code Diagnosis ICD10 Code [id number] JOSEP MONTANA PA-C [facility] [address] [place] [address] 12/23/2023 09:33:50 12/23/2023 10:26:09 Acute kidney injury 56635376 E87.5 Hyponatremia 71196731 E8 7.1 Essential hypertension 30139083 I10 Health Concerns Section Related Observation LastModified by Organization Detai ls LastModified Time None Recorded Concern Status LastModified by Organization Details LastModified Time None Recorded Payers Encounter Date Sequence Insurance Name Policy Number Policy Guthrie Covered Member ID Guthrie Member ID Guarantor Name 12/23/2023 1 [facility] (MEDICARE REPLACEMENT/A DVANTAGE - PPO) [id number] Luan Regan Blossom [id number] Luan Regan Blossom 12/23/2023 1 [place] A - [facility] (MEDICARE) Luan Regan Blossom [id number] Luan Regan Blossom Notes Date Note Type Note Provider Name and Address Organization Details Recorded Time 12/23/2023 text/html HPI Notes: 63y/o male presenting for f/u hospitalization. 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 Ultimately, admitted to hospitalist service for management of stage 3 SHIRLEY, hyponatremia, hypotension, and hyperkalemia. D/C'd from LISINOPRIL and d/c to home after stabilization on SODIUM POLYSYTRENE SULFONATE 15g BID x 2d on 12/17/23. On presentation today, Luan reports he is feeling well. Has resumed work duties and has out of state job planned for later in the week. He is trying to make efforts to be better about hydrating through the daytime. [address], [place], [address], [facility]. 12/23/2023 11:10:01
--- OUTSIDE RECORDS SUMMARY | 2024-03-22 09:16 | XMS_ITS | Encounter Summary ---
Author Organization [facility] Address [address] [place] [address] Care Team Providers Care Lute Packer Or Applier Name Role Phone Josep Ridley PA-C Primary Care Provider + Encounter Details Date Type Department Care Team (Late st Contact Info) Description 11/13/2021 Lab Requisition [facility] Pathology & Laboratory Medicine - [facility] [address], [place] [address] Outr Resulting Lab, Provider Social History Tobacco [...] Procedure Name Priority Date/Time Associated Diagnosis Comments [facility] Today 11/13/2021 14:30 EDT COVID-19 TESTING Routine 11/13/2021 14:3 0 EDT documented in this encounter Results * COVID-19 TEST [facility] PCR (11/13/2021 14:30 EDT) Swab 11/13/2021 14:3 0 EDT 11/14/2021 17:17 EDT Provider Outr Resulting Lab MICROBIOLOGY - GENERAL ORDERABLES [facility] [address] [place] [address] * (ABNORMAL) COVID-19 TESTING (11/13/2021 14:30 EDT) COVID-19 rt-PCR Result Positive( AA) Negative 11/15/2021 11:36 EDT [facility] Comment: This test has not been FDA cleared or approved. This test has been authorized by FDA under an EUA for use by authorized laboratories. This test has been authorized only for detection of nucleic acid from 2019-nCoV, not for any other viruses or pathogens. This test is only authorized for the duration of the declaration that circumstances exist justifying the authorization of emergency use of in vitro diagnostic tests for detection and/or diagnosis of 2019-nCoV under section 564(b)(1) of Act, 21 U.S.C ?? 360bbb-3(b) (1), unless the authorization is terminated or revoked sooner. Testing was performed using the celia SARS-CoV-2 assay ([employer] on the Celia 6800 System Performing Lab Celia [address] [facility] 11/15/2021 11:36 EDT [facility] Swab 11/13/2021 14:3 0 EDT 11/14/2021 17:17 EDT Provider Outr Resulting Lab MICROBIOLOGY - GENERAL ORDERABLES [facility] [address] [place] [address] documented in this encounter Visit Diagnoses Not on filedocumented in this encounter Additional Health Concerns Infection Onset Date Last Indicated Resolved Time COVID-19 11/13/2021 11/13/2021 12/03/2021 22:1 5 EDT documented as of this encounter Care Teams Lute Packer Or Applier Relationship Specialty Start Date End Date Josep Ridley PA-C [address] [place] [address] PCP - General 09/13/13 documented as of this encounter
[2024-03-22 17:08] LABS: Hemoglobin A1C 5.4 % (<5.7)
[2024-03-22 17:38] LABS: BUN 15 mg/dL (7-18); Calcium 9.2 mg/dL (8.5-10.1); Calculated LDL 82 mg/dL (<100); Chloride 107 mmol/L (98-107); Cholesterol 157 mg/dL (<200); Estimated GFR 83.01 (mL/min/1.73m2); Glucose 109 mg/dL (74-106); HDL Cholesterol 63 mg/dL (40-60); Potassium 4.9 mmol/L (3.5-5.1); Sodium 144 mmol/L (136-145); Triglyceride 61 mg/dL (<150)
== END 2024-03-22 09:16 | disposition home or self-care (01) ==
LOC: NCHCN 09:15
PROVIDERS: PCP Physician Assistant Medical; Visit Provider Physician Assistant Medical
DX: I10 Essential (primary) hypertension (principal); R73.03 Prediabetes
CPT/HCPCS: 80048; 80061; 83036

== ENCOUNTER 2025-03-07 09:17 | Outpatient (REF) | payer MEDICARE, SELFPAY ==
[2025-03-07 16:27] LABS: Hemoglobin A1C 5.5 % (<5.7)
[2025-03-07 17:24] LABS: ALT 25 U/L (16-63); AST 13 U/L (15-37); Albumin 4.0 g/dL (3.4-5.0); Alkaline Phosphatase 85 U/L (46-116); Anion Gap 10.9 mmol/L (3-11); BUN 13 mg/dL (7-18); Bilirubin, Total 0.6 mg/dL (0.2-1.0); CO2 28.1 mmol/L (21.0-32.0); Calcium 9.2 mg/dL (8.5-10.1); Calculated LDL 101 mg/dL (<100); Chloride 102 mmol/L (98-107); Cholesterol 174 mg/dL (<200); Estimated GFR 93.61 (mL/min/1.73m2); Glucose 107 mg/dL (74-106); HDL Cholesterol 64 mg/dL (>or=40); Potassium 4.6 mmol/L (3.5-5.1); Sodium 141 mmol/L (136-145); Total Protein 7.1 g/dL (6.4-8.2); Triglyceride 49 mg/dL (<150)
[2025-03-07 22:55] LABS: PSA, Screening 1.9 ng/mL (<=4.5)
== END 2025-03-07 09:18 | disposition home or self-care (01) ==
LOC: NCHCN 09:17
PROVIDERS: PCP Physician Assistant Medical; Visit Provider Physician Assistant Medical
DX: Z12.5 Encounter for screening for malignant neoplasm of prostate (principal); I10 Essential (primary) hypertension; E78.5 Hyperlipidemia, unspecified; Z13.1 Encounter for screening for diabetes mellitus
CPT/HCPCS: 80053; 80061; 84153; 83036